=== PATIENT | female | born 1935 | race Caucasian/White ===

== ENCOUNTER 2019-12-05 11:21 | Outpatient (CLI) | payer MEDICARE, SELFPAY ==
[2019-12-05 12:27] LABS: Hematocrit 38.6 % (37.0-47.0); Hemoglobin 12.6 g/dL (12.0-15.0); Mean Corpuscular HGB Conc 32.6 g/dl (32-36); Mean Corpuscular Hemoglobin 31.1 pg (26-34); Mean Corpuscular Volume 95.3 fl (80-100); Mean Platelet Volume 10.3 fl (7.4-10.4); Platelet Count Result 205 k/mm3 (150-375); Red Blood Count 4.05 M/mm3 (4.2-5.4); Red Cell Distribution Width 13.2 % (11.5-14.5); White Blood Count 6.8 K/mm3 (4.5-10.0)
[2019-12-05 12:38] LABS: Alanine Aminotransferase 34 U/L (4-35); Albumin Level 4.3 g/dL (3.5-5.1); Alkaline Phosphatase 79 U/L (38-126); Anion Gap 6 mmol/L (8-16); Aspartate Amino Transferase 35 U/L (14-36); Blood Urea Nitrogen 13 mg/dL (7-17); Carbon Dioxide 27 mmol/L (22-30); Chloride 106 mmol/L (98-107); Cholesterol 155 mg/dL (0-200); Estimated Glomerular Filt Rate > 60; Glucose 119 mg/dL (65-105); HDL Direct 46 mg/dL; Potassium 4.7 mmol/L (3.4-5.0); Sodium 139 mmol/L (137-145); Triglycerides 125 mg/dL (<150)
[2019-12-05 12:49] LABS: LDL Cholesterol Direct 74 mg/dL
[2019-12-05 13:09] LABS: Thyroid Stimulating Hormone < 0.015 uIU/mL (0.465-4.680)
== END 2019-12-05 11:22 | disposition home or self-care (01) ==
LOC: ANHLAB 11:25
PROVIDERS: PCP Family Medicine; Visit Provider Family Medicine
DX: I48.91 Unspecified atrial fibrillation (principal); E03.9 Hypothyroidism, unspecified; E78.2 Mixed hyperlipidemia; I10 Essential (primary) hypertension; R94.6 Abnormal results of thyroid function studies
CPT/HCPCS: 36415; 80053; 80061; 84443; 85027

== ENCOUNTER 2022-04-22 09:38 | Emergency (ER) | payer MEDICARE, SELFPAY ==
--- NOTE | ~2022-04-22 | XR_ITS ---
XR wrist RT min 3V DATE: 04/22/2022 10:03 INDICATION: Fall. Right wrist injury, pain TECHNIQUE: 4 views COMPARISON: None FINDINGS: Diffuse osteopenia. Polyarticular osteoarthritis, including triscaphe, first carpometacarpal, first metacarpophalangeal a nd interphalangeal joints, second and third metacarpophalangeal and additional included fourth proxim al interphalangeal joint and fifth proximal and distal interphalangeal joints. Subtle nondisplaced distal radial fracture is not excluded. CT right wrist examination is recommended . IMPRESSION: Cannot exclude subtle nondisplaced distal radial fracture; CT right wrist examination wou ld be more definitive for confirmation or exclusion of distal radial fracture Osteopenia Polyarticular osteoarthritis Reviewed, dictated and finalized at location A. [employer] IMPRESSION: Cannot exclude subtle nondisplaced distal radial fracture; CT right wrist examination would be more definitive for confirmation or exclusion of di stal radial fracture Osteopenia Polyarticular osteoarthritis
[2022-04-22 09:42] VITALS: BP 164/84; PULSE 80; RESP 20; TEMP 37.2; O2SAT 100
--- NOTE | 2022-04-22 09:49 | ED.UPPEXIN ---
HPI - Extremity Injury (Upper) General Chief Complaint: Extremity Injury, Upper Stated Complaint: right wrist injury Time Seen by Provider: 04/22/22 09:49 History of Present Illness HPI narrative: PATIENT WAS REACHING DOWN TO ATTEMPT TO PUT GUTTER BACK IN PLACE YESTERDAY AND LOST BALANCE CATCHING HERSELF WITH HER RIGHT WRIST. PATIENT PRESENTS TODAY WITH RIGHT WRIST PAIN. Related Data Home Medications Medication Instructions Recorded Confirmed acetaminophen 500 mg capsule 500 mg PO Q4H PRN Pain 01/28/19 04/22/22 aspirin 81 mg tablet,delayed 81 mg PO DAILY 01/28/19 04/22/22 release (Adult Low Dose Aspirin) multivitamin,[id number] 1 tablet PO DAILY 01/28/19 04/22/22 (Complete Multivitamin tablet) rivaroxaban 20 mg tablet (Xarelto) 20 mg PO DAILY 01/28/19 04/22/22 Allergies Allergy/AdvReac Type Severity Reaction Status Date / Time pentazocine Allergy Unknown Unknown Verified 04/22/22 09:42 red dye Allergy Unknown Unknown Verified 04/22/22 09:42 Contrast Media Allergy Unknown Unknown Uncoded 12/21/20 11:21 Review of Systems Review of Systems: CONSTITUTIONAL: DENIES FEVER, CHILLS, OR SWEATS. EYES: DENIES VISUAL CHANGES, REDNESS, OR DISCHARGE. ENT: DENIES RHINORRHEA, CONGESTION, SORE THROAT, OR OTALGIA. CARDIOVASCULAR: DENIES CHEST PAIN, PALPITATIONS, OR EDEMA. RESPIRATORY: DENIES COUGH OR DYSPNEA. GASTROINTESTINAL: DENIES ABDOMINAL PAIN, NAUSEA, VOMITING, OR DIARRHEA. GENITOURINARY: DENIES DYSURIA OR HEMATURIA. SKIN: DENIES RASH OR ITCHING. MUSCULOSKELETAL: DENIES BACK PAIN, JOINT PAIN, OR MYALGIA. NEUROLOGIC: DENIES HEADACHE, NUMBNESS, OR WEAKNESS. PSYCHIATRIC: DENIES ANXIETY OR DEPRESSION. [facility] Past Medical History Medical History Atrial fibrillation and flutter Chronic knee pain Chronic shoulder pain Congestive heart failure Hyperlipidemia Hypertension Hypothyroidism determined by thyroid function test Surgical History Surgical History History of cholecystectomy History of heart artery stent Family History Family History Mother Family history of malignant neoplasm Diabetes mellitus Father Family history of heart disease in male family member before age 55 Diabetes mellitus Social History Social History Smoking status: Never smoker Second hand tobacco smoke exposure: No Smoking end date: 03/12/99 Alcohol intake: current Substance use: never Substance use type: does not use Living arrangements: alone Occupation/Education: retired Gender identity (if verbalized by the patient): Female Comments AT TIME OF SIGNATURE, AGREE WITH NURSING PAST MEDICAL, SURGICAL, SOCIAL AND FAMILY HISTORY. THERE IS NO RELEVANT FAMILY HISTORY PERTINENT TO THE PRESENTING COMPLAINT Exam Narrative: GENERAL: WELL-APPEARING, WELL-NOURISHED, AND IN NO ACUTE DISTRESS. HEAD: NORMOCEPHALIC, ATRAUMATIC. EYES: PERRLA AND EOMI. ENT: NARES CLEAR, NO RHINORRHEA OR EPISTAXIS. MUCOUS MEMBRANES MOIST. NECK: SUPPLE. CHEST: CLEAR TO AUSCULTATION. NO RESPIRATORY DISTRESS. HEART: REGULAR RATE AND RHYTHM. NO MURMUR HEARD. NORMAL PERIPHERAL PULSES. ABDOMEN: SOFT, NONTENDER, NONDISTENDED, NORMAL ACTIVE BOWEL SOUNDS. EXTREMITIES: NORMAL RANGE OF MOTION. NO EDEMA. RIGHT WRIST PAIN HAND EXAM - Skin intact, no laceration, SLIGHT swelling, no erythema, normal digit cascade with flexion of fingers, median nerve, ulnar nerve, radial nerve is intact. Normal sensation of each side of each finger, can perform `ok? sign, `cross over finger test of index and middle fingers? and `thumbs up? sign, normal thumb opposition, no scissoring. good capillary refill and radial pulse. normal flexion and extension of fingers and wrist. normal supination at wrist. Normal forearm and elbow exam. PAIN TO DORSAL SIDE OF WRIST.
== END 2022-04-22 11:12 | disposition home or self-care (01) ==
PROVIDERS: Emergency Provider Nurse Practitioner Family; PCP Family Medicine
DX: S62.101A Fracture of unspecified carpal bone, right wrist, initial encounter for closed fracture (principal); W19.XXXA Unspecified fall, initial encounter; I48.91 Unspecified atrial fibrillation; I11.0 Hypertensive heart disease with heart failure; I50.9 Heart failure, unspecified; E78.5 Hyperlipidemia, unspecified; I10 Essential (primary) hypertension; E03.9 Hypothyroidism, unspecified; I25.10 Atherosclerotic heart disease of native coronary artery without angina pectoris; Z95.5 Presence of coronary angioplasty implant and graft
CPT/HCPCS: 29125; 73110; 99214; A4565; G0463

== ENCOUNTER 2022-09-10 10:29 | Inpatient (IN) | payer MEDICARE, SELFPAY ==
[2022-09-10] VITALS (9 sets, daily range): BP systolic 119–168; BP diastolic 44–80; PULSE 57–92; RESP 16–28; TEMP 36.3–36.6; O2SAT 95–100; BMI 23.8
--- NOTE | ~2022-09-10 | CT_ITS ---
EXAMINATION: CT cervical spine wo con DATE: 09/10/2022 13:03 INDICATION: Neck pain TECHNIQUE: Computed tomography (CT) of the cervical spine was performed without intravenous contrast. The dose-length product (DLP) was 152.58 mGy-cm. Automated exposure control and iterative reconstruc tion technique were employed. COMPARISON: None FINDINGS: There is 1 mm of retrolisthesis of C4 on C5 and C5 on C6. The vertebral body heights are no rmal. There is severe loss of intervertebral disc space height from C4-5 through C6-7. The odontoid p rocess is intact. Small degenerative osteophytes project from the anterior endplates of multiple vert ebral bodies. The prevertebral soft tissues are normal. There is no fracture. There is multilevel mod erate to severe facet and uncovertebral joint osteoarthritis. IMPRESSION: 1. Severe cervical spondylosis without acute findings. Reviewed, dictated and finalized at location A.
--- NOTE | ~2022-09-10 | CT_ITS ---
EXAMINATION: CT brain wo con INDICATION: Headache COMPARISON: 03/18/2018 TECHNIQUE: Standard unenhanced head CT. The dose-length product (DLP) was 605.33 mGy-cm. The mA was a djusted according to patient size. Iterative reconstruction technique was employed. FINDINGS: There is no acute intraparenchymal hemorrhage. No evidence of mass lesion. No evidence of a cute infarction. There is mild periventricular and subcortical hypodensity probably related to small vessel ischemic disease. There is mild prominence of the sulci and ventricles related to cerebral atr ophy. Intracranial calcified cerebral atherosclerosis is noted. There are no extra-axial collections. There is no mass effect or midline shift. Changes in the globes are likely from ocular lens surgery. There is mild mucosal thickening of the paranasal sinuses. IMPRESSION: 1. No acute intracranial abnormality. 2. Age related findings. Reviewed, dictated and finalized at location A.
--- NOTE | ~2022-09-10 | XR_ITS ---
EXAMINATION: XR chest 2V DATE: 09/10/2022 12:52 INDICATION: Chest pain after fall TECHNIQUE: Frontal and lateral views of the chest are obtained COMPARISON: 03/18/2018 FINDINGS: The lungs are free of acute opacities. There are small pleural effusions. No pneumothorax i s identified. There is advanced osteoarthritis of the left glenohumeral joint. The cardiomediastinal silhouette is normal. There is moderate thoracic spondylosis. A coronary artery stent is noted. IMPRESSION: 1. Small pleural effusions. Reviewed, dictated and finalized at location A. IMPRESSION: 1. Small pleural effusions.
--- NOTE | 2022-09-10 11:08 | ECG_ITS ---
Measurements Intervals [place] Rate: 51 P: [place]: 0 QRS: 4 QRSD: 120 T: 3 QT: 472 QTc: 439 Interpretive Statements JUNCTIONAL RHYTHM RIGHT BUNDLE BRANCH BLOCK BASELINE ARTIFACT- I, II, III, AVR, AVL, AVF, V2 ABNORMAL ECG NO PREVIOUS ECG AVAILABLE FOR COMPARISON Electronically Signed On 09-10-2022 13:13:52 CDT by Luis Bowles D.O.
[2022-09-10 11:29] LABS: Basophils Percent Auto 0.2 % (0.2-1.2); Hematocrit 39.3 % (37.0-47.0); Hemoglobin 13.2 g/dL (12.0-15.0); Immature Granulocyte Absolute 0.04 K/mm3 (0.00-0.031); Immature Granulocyte Percent A 0.3 % (0-0.5); Lymphocytes Absolute Auto 0.47 K/mm3 (0.9-3.2); Lymphocytes Percent Auto 3.4 % (18.3-44.2); Mean Corpuscular HGB Conc 33.6 g/dl (32-36); Mean Corpuscular Hemoglobin 31.3 pg (26-34); Mean Corpuscular Volume 93.1 fl (80-100); Mean Platelet Volume 10.5 fl (7.4-10.4); Monocytes Absolute Auto 0.7 K/mm3 (0.1-0.6); Monocytes Percent Auto 4.9 % (2.6-8.5); Neutrophils Absolute Auto 12.6 K/mm3 (1.3-6.7); Neutrophils Percent Auto 91.2 % (45.5-73.1); Platelet Count Result 216 k/mm3 (150-375); Red Blood Count 4.22 M/mm3 (4.2-5.4); Red Cell Distribution Width 12.4 % (11.5-14.5); White Blood Count 13.8 K/mm3 (4.5-10.0)
[2022-09-10 11:42] LABS: Alanine Aminotransferase 39 U/L (6-35); Albumin Level 4.1 g/dL (3.5-5.1); Alkaline Phosphatase 71 U/L (38-126); Anion Gap 10 mmol/L (8-16); Aspartate Amino Transferase 59 U/L (14-36); Bilirubin,Total 1.4 mg/dL (0.2-1.3); Blood Urea Nitrogen 14 mg/dL (7-17); Calcium 9.2 mg/dL (8.4-10.2); Carbon Dioxide 26 mmol/L (22-30); Chloride 107 mmol/L (98-107); Estimated CRCL calculation 40 ml/min; Estimated Glomerular Filt Rate > 60; Glucose 139 mg/dL (65-110); Lipase 136 U/L (23-300); Potassium 3.4 mmol/L (3.4-5.0); Sodium 143 mmol/L (137-145)
[2022-09-10 11:54] LABS: INR 1.8; Partial Thromboplastin Time 31.7 SECONDS (22.3-36.8); Prothrombin Time 22.3 Seconds (11.1-14.7)
--- NOTE | 2022-09-10 12:26 | ED.CHESTPAIN ---
HPI - Chest Pain General Chief Complaint: Chest Pain Stated Complaint: heart attack Time Seen by Provider: 09/10/22 12:00 History of Present Illness HPI narrative: Patient is an 87-year-old female with a history of hypertension, CHF, A-fib on Xarelto, hyperlipidemia, hypothyroidism, CAD presenting with chest pain. Patient states that for the last several days she has had left-sided chest pain that goes into her left arm. States that she has been feeling a bit short of breath. Patient states that she lost her balance and fell in the middle of the night last night. She was unable to get up so she laid on the floor until her son came in the morning. She denies headache, neck or back pain, numbness or weakness, abdominal pain, nausea or vomiting, diarrhea, dysuria, leg swelling. Related Data Home Medications Medication Instructions Recorded Confirmed acetaminophen 500 mg capsule 500 mg PO Q4H PRN Pain 01/28/19 09/10/22 aspirin 81 mg tablet,delayed 81 mg PO DAILY 01/28/19 09/10/22 release (Adult Low Dose Aspirin) multivitamin,[id number]-hxzhszhx 1 tablet PO DAILY 01/28/19 09/10/22 (Complete Multivitamin tablet) rivaroxaban 20 mg tablet (Xarelto) 20 mg PO DAILY 01/28/19 09/10/22 furosemide 20 mg tablet 20 mg PO DAILY 09/10/22 09/10/22 hydralazine 25 mg tablet 25 mg PO BID 09/10/22 09/10/22 Allergies Allergy/AdvReac Type Severity Reaction Status Date / Time pentazocine Allergy Unknown Unknown Verified 04/27/22 09:16 red dye Allergy Unknown Unknown Verified 04/27/22 09:16 Contrast Media Allergy Unknown Unknown Uncoded 04/27/22 09:16 Review of Systems Review of Systems: All systems reviewed & are unremarkable except as noted in HPI and below PMFSH Past Medical History Medical History (Updated 09/11/22 @ 21:23 by China Chen MD) Atrial fibrillation and flutter Chronic anticoagulation Chronic knee pain Chronic shoulder pain Congestive heart failure Coronary artery disease Diverticulitis Hyperlipidemia Hypertension Hypothyroidism Osteoarthritis Osteoporosis Type 2 diabetes mellitus Surgical History Surgical History (Updated 09/10/22 @ 17:03 by Meghana Joyce PA-C) History of arthroscopy of right knee History of basal cell carcinoma excision History of cataract extraction History of cholecystectomy History of heart artery stent History of tonsillectomy Family History Family History (Updated 09/10/22 @ 17:05 by Meghana Joyce PA-C) Mother Diabetes mellitus Leukemia Father Family history of heart disease in male family member before age 55 Diabetes mellitus Heart disease Social History Social History (Updated 09/10/22 @ 17:04 by Meghana Joyce PA-C) Social History: Surrogate medical decision maker: Code status: Full code. Smoking packs per day: 0.5 Smoking cigarettes per day: 10.0 Years smoked: 10 Smoking pack-years: 5.00 Smoking status: Former smoker Second hand tobacco smoke exposure: No Smoking end date: 03/12/99 Alcohol intake: never Substance use: never Substance use type: does not use Lack of Transportation: No Lack of Food: Never True Current Housing: I Have Housing Concerned About Future Housing: No Difficulty Paying Gas/Electric Bills: No Difficulty Paying for Meds: No Currently Unemployed: No Education: Decline to Answer Difficulty w/ Childcare or Family Care: No Living arrangements: alone Additional living arrangements comments: . Four children, 2 have passed. Occupation/Education: retired Additional occupation/education comments: Retired from [employer]. Spiritual care concerns: No Exam Narrative: GENERAL: Frail-appearing elderly female lying in bed in no acute distress HEAD: Normocephalic, atraumatic. EYES: PERRLA and EOMI. ENT: Nares clear, no rhinorrhea or epistaxis. Mucous membranes moist. NECK: Supple. No midline tenderness CHEST: Clear to auscultation. No respiratory distress. HEART: Regula
[2022-09-10] MEDS: SODIUM CHLORIDE 0.9% IV 1,000 ML 999 ML IV CONT (12:35)
[2022-09-10] MEDS: ASPIRIN 81 MG CHEWABLE TABLET 324 MG PO (12:36)
[2022-09-10 12:45] LABS: Creatine Kinase 397 U/L (30-135); Magnesium 1.7 mg/dL (1.6-2.3)
[2022-09-10 12:47] LABS: Lactic Acid Reflex 3.3 mmol/L (0.7-2.0)
[2022-09-10 12:57] LABS: NT Pro B Type Natriuretic Pept 2670 pg/mL (19.9-100)
[2022-09-10] MEDS: MORPHINE SULFATE (*CRX) 2 MG/ML INJ IV PUSH ×2 (13:48→17:35)
[2022-09-10 15:36] LABS: Reflex Lactic Acid Yes or No Add Lactic
--- NOTE | 2022-09-10 15:44 | ADMGEN ---
This patient, Bindu Espinosa, was admitted to IMU Room 231-01 at 1542. Patient/family oriented to hospital policies and general routines including ID bracelet, bed and alarms, visiting hours, pain management, procedures, bathroom and other care routines, personal items, smoking policy, room service/diet, and visiting hours. Information on how to activate the Rapid Response Team has been discussed. Patient/Family are encouraged to report perceived risks to care and to ask questions if they do not understand what they are told or what they should do.
--- NOTE | 2022-09-10 16:28 | ECG_ITS ---
Measurements Intervals [place] Rate: 78 P: 60 [place]: 208 QRS: -2 QRSD: 135 T: 22 QT: 423 QTc: 483 Interpretive Statements SINUS RHYTHM FREQUENT ATRIAL PREMATURE COMPLEXES RIGHT BUNDLE BRANCH BLOCK BASELINE WANDER- II, III, AVR, AVL, AVF, V3-V6 ABNORMAL ECG COMPARED TO ECG 09/10/2022 11:13:00 SINUS RHYTHM NOW PRESENT Electronically Signed On 09-11-2022 6:49:44 CDT by Luis Bowles D.O.
[2022-09-10] MEDS: NITROGLYCERIN SL 0.4 MG TABLET SUBLINGUAL (16:40)
--- NOTE | 2022-09-10 17:00 | PM.IMHP ---
H&P: HPI History of Present Illness Date/Time: 09/10/22 17:00 Chief Complaint: Chest pain. Narrative: This is an 87-year-old female with history of coronary artery disease, atrial fibrillation flutter on chronic anticoagulation, congestive heart failure, hypertension, hyperlipidemia, and hypothyroidism who presented to the emergency department from home for evaluation of chest pain. The patient provides the following history. She reports intermittent left-sided chest discomfort radiating to the left arm associated with mild shortness of breath for the past couple of days. She sees no pattern as to when this occurs and she has not noticed any significant aggravating or alleviating factors. Sometime overnight she got up to use restroom, lost her balance, and fell to the floor. She does not believe that she hit her head and does not think that there was any loss of consciousness in the fall. She was unable to get herself up and she lay on the floor until her son found her this morning. Vital signs were stable on arrival to the ED. CT of the head and neck did not show any acute findings. Labs were significant for WBC count of 13.8, CK 397, total bili I 0.4, AST 59, ALT 39, troponin with a peak of 4.670. EKG showed a junctional rhythm with right bundle-branch block and no acute ST segment depressions or elevations. She was treated with nitroglycerin and morphine with improvement in her pain and she is without discomfort at the time my evaluation. Review of Systems Review of Systems: Twelve systems were reviewed. No headache. No vertigo. No focal weakness or paresthesias. She denies recent cold and flu symptoms. No nausea or vomiting. She denies sweats. Perhaps some mild shortness of breath with her chest pain but nothing significant. Except as documented, all other systems were reviewed and are negative. [facility] Past Medical History Medical History (Updated 09/10/22 @ 17:06 by Meghana Joyce PA-C) Atrial fibrillation and flutter Chronic anticoagulation Chronic knee pain Chronic shoulder pain Congestive heart failure Coronary artery disease Diverticulitis Hyperlipidemia Hypertension Hypothyroidism Osteoarthritis Osteoporosis Type 2 diabetes mellitus Surgical History Surgical History (Updated 09/10/22 @ 17:03 by Meghana Joyce PA-C) History of arthroscopy of right knee History of basal cell carcinoma excision History of cataract extraction History of cholecystectomy History of heart artery stent History of tonsillectomy Family History Family History (Updated 09/10/22 @ 17:05 by Meghana Joyce PA-C) Mother Diabetes mellitus Leukemia Father Family history of heart disease in male family member before age 55 Diabetes mellitus Heart disease Social History Social History (Updated 09/10/22 @ 17:04 by Meghana Joyce PA-C) Social History: Surrogate medical decision maker: Code status: Full code. Smoking packs per day: 0.5 Smoking cigarettes per day: 10.0 Years smoked: 10 Smoking pack-years: 5.00 Smoking status: Former smoker Second hand tobacco smoke exposure: No Smoking end date: 03/12/99 Alcohol intake: never Substance use: never Substance use type: does not use Lack of Transportation: No Lack of Food: Never True Current Housing: I Have Housing Concerned About Future Housing: No Difficulty Paying Gas/Electric Bills: No Difficulty Paying for Meds: No Currently Unemployed: No Education: Decline to Answer Difficulty w/ Childcare or Family Care: No Living arrangements: alone Additional living arrangements comments: . Four children, 2 have passed. Occupation/Education: retired Additional occupation/education comments: Retired from [employer]. Spiritual care concerns: No Meds Home Medications and Allergies Home Medications Medication Instructions Recorded Confirmed Type acetaminophen 500 mg capsule 500 mg PO Q4H PRN Pain 01/28/19
[2022-09-10 17:34] LABS: Hemoglobin A1C 5.1 % (<5.7)
[2022-09-10 18:02] LABS: Creatine Kinase 483 U/L (30-135)
[2022-09-10 18:05] LABS: Lactic Acid 1.2 mmol/L (0.7-2.0)
--- NOTE | 2022-09-10 18:26 | PC.NURSE ---
Holding 1800 hydralazine dose due to nitro and morphine given.
[2022-09-10] MEDS: NITROGLYCERIN OINTMENT 1 INCH DOSE TRANSDERM (19:18)
[2022-09-10] MEDS: METOPROLOL TARTRATE 25 MG TABLET PO (19:18)
[2022-09-10 20:03] LABS: Glucose Point of Care 120 mg/dl (65-105)
[2022-09-11] VITALS (14 sets, daily range): BP systolic 118–153; BP diastolic 54–89; PULSE 60–82; RESP 17–20; TEMP 36.2–36.8; O2SAT 97–99
[2022-09-11] MEDS: NITROGLYCERIN OINTMENT 1 INCH DOSE TRANSDERM ×4 (02:13→17:27)
[2022-09-11 05:01] LABS: Hematocrit 35.4 % (37.0-47.0); Hemoglobin 11.5 g/dL (12.0-15.0); Mean Corpuscular HGB Conc 32.5 g/dl (32-36); Mean Corpuscular Hemoglobin 30.6 pg (26-34); Mean Corpuscular Volume 94.1 fl (80-100); Mean Platelet Volume 10.5 fl (7.4-10.4); Platelet Count Result 171 k/mm3 (150-375); Red Blood Count 3.76 M/mm3 (4.2-5.4); Red Cell Distribution Width 12.4 % (11.5-14.5); White Blood Count 8.5 K/mm3 (4.5-10.0)
[2022-09-11 05:12] LABS: Alanine Aminotransferase 38 U/L (6-35); Albumin Level 3.4 g/dL (3.5-5.1); Alkaline Phosphatase 57 U/L (38-126); Anion Gap 7 mmol/L (8-16); Aspartate Amino Transferase 71 U/L (14-36); Bilirubin,Total 1.8 mg/dL (0.2-1.3); Blood Urea Nitrogen 11 mg/dL (7-17); Calcium 8.4 mg/dL (8.4-10.2); Carbon Dioxide 24 mmol/L (22-30); Chloride 110 mmol/L (98-107); Creatine Kinase 502 U/L (30-135); Estimated CRCL calculation 40 ml/min; Estimated Glomerular Filt Rate > 60; Glucose 120 mg/dL (65-110); Magnesium 1.9 mg/dL (1.6-2.3); Potassium 3.5 mmol/L (3.4-5.0); Sodium 141 mmol/L (137-145)
[2022-09-11 05:53] LABS: Thyroid Stimulating Hormone Reflex < 0.015 uIU/mL (0.465-4.68)
[2022-09-11 07:17] LABS: Free T4 Free Thyroxine Reflex 1.79 ng/dL (0.78-2.19)
[2022-09-11 07:58] LABS: Total Triiodothyronine (T3) 0.88 NG/ML (0.97-1.69)
[2022-09-11 08:00] LABS: Glucose Point of Care 128 mg/dl (65-105)
[2022-09-11] MEDS: FUROSEMIDE 20 MG TABLET PO (09:17)
[2022-09-11] MEDS: ASPIRIN 81 MG ENTERIC TABLET PO (09:17)
[2022-09-11] MEDS: hydrALAZINE HCL 25 MG TABLET PO ×2 (09:24→17:25)
[2022-09-11] MEDS: METOPROLOL TARTRATE 25 MG TABLET PO ×2 (09:24→17:25)
[2022-09-11] MEDS: ATORVASTATIN 40 MG TABLET PO (09:24)
[2022-09-11] MEDS: lisinopriL 20 MG TABLET PO (09:24)
[2022-09-11] MEDS: THERAPEUTIC MULTIVITAMINS/MINERALS TAB (*BKC) 1 TABLET PO (09:28)
[2022-09-11 11:48] LABS: Glucose Point of Care 117 mg/dl (65-105)
--- NOTE | 2022-09-11 12:29 | PM.IMPN ---
Progress Note: A&P Assessment and Plan (1) Non-ST elevated myocardial infarction: Code(s): I21.4 - Non-ST elevation (NSTEMI) myocardial infarction Status: Acute (2) Fall from ground level: Code(s): W18.30XA - Fall on same level, unspecified, initial encounter Status: Acute (3) Coronary artery disease: Code(s): I25.10 - Atherosclerotic heart disease of [place] coronary artery without angina pectoris Status: Acute (4) Hypertension: Qualifiers: Hypertension type: essential hypertension Qualified Code(s): I10 - Essential (primary) hypertension Code(s): I10 - Essential (primary) hypertension Status: Acute (5) Hyperlipidemia: Qualifiers: Hyperlipidemia type: mixed hyperlipidemia Qualified Code(s): E78.2 - Mixed hyperlipidemia Code(s): E78.5 - Hyperlipidemia, unspecified Status: Acute (6) Chronic anticoagulation: Code(s): 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 Labs, imaging, EKG, and all reports were personally reviewed. EKG does not show any acute ST segment depressions or elevations however troponin is elevated and is now a little bit above 4.0. Cardiology has been consulted and for now they recommend holding her Xarelto as she may need to be taken to the [facility]. Troponins will be trended to peak. At the time my evaluation she is without chest pain. Regarding her fall, she reports to me that she lost her balance and does not think there was any loss of consciousness or head trauma. She is a bit confused as to what occurred however. Continue to monitor on telemetry to rule out cardiac dysrhythmia. Her CK is a bit elevated but not significantly so and will be monitored. LFTs are also mildly elevated and have been in the past. Abdominal exam is benign and LFTs will be trended. Initiate sliding scale insulin, Accu-Cheks, and hypoglycemic protocol. Check hemoglobin A1c. Continue levothyroxine and check TSH. The rest of her home medications will be reviewed and resumed as appropriate. 09/11/2022:This is an 87-year-old female with history of coronary artery disease, atrial fibrillation flutter on chronic anticoagulation, congestive heart failure, hypertension, hyperlipidemia, and hypothyroidism presented with chest pain. Intermittent left-sided chest discomfort radiating to the left arm associated with mild shortness of breath for the past couple of days. Sometime overnight she got up to use restroom, lost her balance, and fell to the floor. No head injury. she was unable to get herself up and she lay on the floor until her son found her this morning. Vital stable. CT of the head and neck did not show any acute findings. Labs were significant for WBC count of 13.8, CK 397, total bili I 0.4, AST 59, ALT 39, troponin with a peak of 4.670. EKG showed a junctional rhythm with right bundle-branch block and no acute ST segment depressions or elevations. She was treated with nitroglycerin and morphine with improvement in her pain. Leukocytosis since then resolved. Troponin level 1.94-4.0 5-4.67. BNP 1670 TSH less than 0.015. Free T4 is normal INR 1.8 on rivaroxaban likely related to that. Continues to have mildly elevated LFTs and CK level. Cervical CT was severe cervical spondylosis without acute findings. Chest x-ray with small pleural effusions. On aspirin and atorvastatin. Xarelto on hold. Hold levothyroxine cardiology has been consulted and will be taken for cardiac catheterization. Remains chest pain-free Subjective Date/time seen: 09/11/22 12:29 Interval history: This is an 87-year-old
--- NOTE | 2022-09-11 15:00 | PCPTNOTE ---
Pt to have cardiac catheterization - Per hospitalist Dr. Zhao, Hold PT until medically stable post cardiac catheterization. will make RN aware. Will follow.
--- NOTE | 2022-09-11 16:08 | PM.CNCAR ---
Assessment and Plan Assessment and plan (1) Non-ST elevated myocardial infarction: Code(s): I21.4 - Non-ST elevation (NSTEMI) myocardial infarction Status: Acute (2) Atrial fibrillation and flutter: Code(s): I48.91 - Unspecified atrial fibrillation; I48.92 - Unspecified atrial flutter Status: Acute (3) History of heart artery stent: Code(s): Z95.5 - Presence of coronary angioplasty implant and graft Status: Acute Plan This is an 87-year-old lady with a history of coronary disease with previous interventional revascularization of her LAD in [place] back in 2006 and 2007. She has been having intermittent episodes of left precordial pain for the last 2 or 3 weeks from what she tells me today. This is occurring in a nonexertional somewhat unpredictable fashion. She then was found on the floor for residence by her son yesterday and brought in for evaluation. Troponin levels are moderately elevated indicating evidence of recent non ST-elevation [place]. long discussion with the patient and her son about this in the room. As long as they still wish to have an aggressive approach to treating her coronary artery disease we should recommend follow-up angiography. We will plan for doing this on Tuesday September 13, 2022 after she has been off of Xarelto for a sufficient amount of time. Jonas Prater MD [facility] History of Present Illness History of Present Illness Consult date/time: 09/11/22 16:08 Reason For Visit: Chest Pain Narrative: This is a 87-year-old lady I am seeing at the request of the hospitalist group because of evidence of acute coronary syndrome/non ST elevation [place]. The patient is known to me from office follow-up she has a history of coronary artery disease and atrial fibrillation. She came into the hospital yesterday at home after having an apparent fall in her residence and was found on the floor in her bedroom by her son who called an ambulance and had her brought into the hospital for evaluation. The patient says she can not remember falling or tripping on anything she simply remembers being on the floor at home and being unable to get up. She laid on the floor from Sunday night into Sunday because she could get up and her son who finally came in to check on her found her and that situation. She says that she has been having episodes of chest pain off and on for about 2 weeks or so she describes a dull aching left precordial pain that seems to come and go in an unpredictable fashion she does not describe this as exertional in nature necessarily it is not associated with shortness of breath nausea vomiting or diaphoresis. She does not have any radiation of this pain to any other location. She states that this was not the principal reason for having her brought to the hospital. In any event she was evaluated in the emergency room and admitted to the hospital. She has a history of coronary artery disease and chronic atrial fibrillation. She previously resided in [place] and underwent PCI of her LAD in in [place] back in 2006 and again in 2007 because of restenoses. She has not had any catheterization procedures done by me since she has been my patient in this area. She developed atrial fibrillation in 2018 and has been on rate control and anticoagulation treatment since then. She also has a history of hypothyroidism treated with thyroid replacement therapy. When I last saw the patient in the office in May of this year she had no cardiovascular complaints she had lost a fair amount of weight in the last year despite a good appetite. Review of Systems Constitutional: Constitutional: Reports no additional constitutional complaints Eyes: Eyes: Reports no additional eye complaints ENT: Reports system reviewed and no additional complaints, except as documented Cardiovascular: Cardiovascular: Reports as per HPI Respiratory: Respiratory: Reports no additional respiratory complaints Gastrointe
[2022-09-11 16:50] LABS: Glucose Point of Care 99 mg/dl (65-105)
[2022-09-11 20:02] LABS: Glucose Point of Care 107 mg/dl (65-105)
[2022-09-12] VITALS (16 sets, daily range): BP systolic 111–145; BP diastolic 53–78; PULSE 53–75; RESP 16–22; TEMP 36.4–37.5; O2SAT 95–100
[2022-09-12] MEDS: NITROGLYCERIN OINTMENT 1 INCH DOSE TRANSDERM ×5 (00:21→23:03)
[2022-09-12] MEDS: ACETAMINOPHEN 500 MG TABLET PO ×2 (00:29→19:34)
[2022-09-12 05:12] LABS: Basophils Absolute Auto 0.1 K/mm3 (0.0-0.1); Basophils Percent Auto 0.7 % (0.2-1.2); Eosinophils Percent Auto 0.4 % (0-4.4); Hemoglobin 10.9 g/dL (12.0-15.0); Immature Granulocyte Absolute 0.01 K/mm3 (0.00-0.031); Immature Granulocyte Percent A 0.1 % (0-0.5); Lymphocytes Absolute Auto 1.37 K/mm3 (0.9-3.2); Lymphocytes Percent Auto 18.5 % (18.3-44.2); Mean Corpuscular Hemoglobin 30.9 pg (26-34); Mean Corpuscular Volume 93.5 fl (80-100); Mean Platelet Volume 10.8 fl (7.4-10.4); Monocytes Absolute Auto 0.7 K/mm3 (0.1-0.6); Neutrophils Absolute Auto 5.3 K/mm3 (1.3-6.7); Neutrophils Percent Auto 71.3 % (45.5-73.1); Platelet Count Result 146 k/mm3 (150-375); Red Blood Count 3.53 M/mm3 (4.2-5.4); Red Cell Distribution Width 12.2 % (11.5-14.5); White Blood Count 7.4 K/mm3 (4.5-10.0)
[2022-09-12 05:45] LABS: Alanine Aminotransferase 37 U/L (6-35); Albumin Level 3.1 g/dL (3.5-5.1); Alkaline Phosphatase 54 U/L (38-126); Anion Gap 5 mmol/L (8-16); Aspartate Amino Transferase 66 U/L (14-36); Bilirubin,Total 2.1 mg/dL (0.2-1.3); Blood Urea Nitrogen 13 mg/dL (7-17); Carbon Dioxide 24 mmol/L (22-30); Chloride 108 mmol/L (98-107); Estimated CRCL calculation 40 ml/min; Estimated Glomerular Filt Rate > 60; Glucose 86 mg/dL (65-110); Magnesium 1.9 mg/dL (1.6-2.3); Potassium 3.1 mmol/L (3.4-5.0); Sodium 137 mmol/L (137-145)
[2022-09-12] MEDS: LEVOTHYROXINE SODIUM 100 MCG TABLET PO (06:23)
[2022-09-12 07:48] LABS: Glucose Point of Care 75 mg/dl (65-105)
[2022-09-12] MEDS: hydrALAZINE HCL 25 MG TABLET PO ×2 (09:25→17:46)
[2022-09-12] MEDS: ASPIRIN 81 MG ENTERIC TABLET PO (09:25)
[2022-09-12] MEDS: lisinopriL 20 MG TABLET PO (09:25)
[2022-09-12] MEDS: THERAPEUTIC MULTIVITAMINS/MINERALS TAB (*BKC) 1 TABLET PO (09:25)
[2022-09-12] MEDS: METOPROLOL TARTRATE 25 MG TABLET PO ×2 (09:25→17:46)
[2022-09-12] MEDS: ATORVASTATIN 40 MG TABLET PO (09:25)
[2022-09-12] MEDS: POTASSIUM CHLORIDE 20 MEQ ER TABLET 40 MEQ PO (09:25)
[2022-09-12] MEDS: FUROSEMIDE 20 MG TABLET PO (09:25)
--- NOTE | 2022-09-12 10:06 | PCOTNOTE ---
Spoke with nurse, patient is having cardiac cath on 09/13/22. Therapy to hold until after procedure.
--- NOTE | 2022-09-12 10:47 | PM.PNCARD ---
Progress Note: A&P Assessment and Plan (1) Non-ST elevated myocardial infarction: Code(s): I21.4 - Non-ST elevation (NSTEMI) myocardial infarction Status: Acute Assessment and Plan: Continue nitroglycerin, aspirin, statin, metoprolol. Holding anticoagulation she had been on Xarelto for AFib. Plan is for angiogram tomorrow. NPO after midnight (2) Atrial fibrillation and flutter: Code(s): I48.91 - Unspecified atrial fibrillation; I48.92 - Unspecified atrial flutter Status: Acute Assessment and Plan: Resume anticoagulation after angiogram (3) History of heart artery stent: Code(s): Z95.5 - Presence of coronary angioplasty implant and graft Status: Acute (4) Hypertension: Qualifiers: Hypertension type: essential hypertension Qualified Code(s): I10 - Essential (primary) hypertension Code(s): I10 - Essential (primary) hypertension Status: Acute Assessment and Plan: Continue current meds including lisinopril, metoprolol, hydralazine (5) Hyperlipidemia: Qualifiers: Hyperlipidemia type: mixed hyperlipidemia Qualified Code(s): E78.2 - Mixed hyperlipidemia Code(s): E78.5 - Hyperlipidemia, unspecified Status: Acute Assessment and Plan: Continue statin (6) Chest pain: Code(s): R07.9 - Chest pain, unspecified Status: Acute Assessment and Plan: Current chest pain is reproducible and likely related to musculoskeletal in etiology. Significant troponin elevation though indicates recent non-STEMI. Plan is as above Subjective Date/time seen: 09/12/22 10:47 Interval history: 87-year-old with CAD. She had fallen and was found by her son today about to hospital for further evaluation. Troponins were elevated in she is being treated for non ST elevation myocardial infarction. Date of service 09/12/2022: Having some left-sided chest pain was reproducible by pushing on her chest. No syncope, presyncope, shortness of breath. Review of Systems Constitutional: Constitutional: Reports no additional constitutional complaints Eyes: Eyes: Reports no additional eye complaints ENT: Reports system reviewed and no additional complaints, except as documented Cardiovascular: Cardiovascular: Reports as per HPI Respiratory: Respiratory: Reports no additional respiratory complaints Gastrointestinal: Gastrointestinal: Reports no additional gastrointestinal complaints Musculoskeletal: Musculoskeletal: Reports back pain and Reports myalgias Integumentary/Breasts: Skin/Breast: Reports system reviewed and no additional complaints, except as docu Neurologic: Reports system reviewed and no additional complaints, except as documented Endocrine: Endocrine: Reports no additional endocrine complaints Hematologic/Lymphatic: Hematologic/Lymphatic: Reports no additional hematologic/lymphatic complaints Allergic/Immunologic: Allergic/Immunologic: Reports no additional allergic/immunologic complaints Exam Const: General: comfortable and no acute distress Other: Very pleasant elderly frail lady no apparent distress HENMT: Mouth: Yes moist mucous membranes Eyes: Sclera: sclerae normal Neck: Neck: supple and no JVD Other: Carotid pulses are intact bilaterally I do not hear any bruits over the neck Resp: Effort & Inspection: normal respiratory effort Auscultation: clear to auscultation bilaterally Cardio: Rhythm: abnormal rhythm irregularly irregular Other: Very soft systolic murmur does not radiate from the left sternal border GI: Auscultation: normal bowel sounds Skin: General skin exam: normal color Neuro: Other: Alert and oriented x3 Extrem: General: normal to inspection Other: Reproducible chest wall pain to palpate left side Objective Data Vital Signs Vital Signs: Vital Signs - 24 hr 09/11/22 12:00 09/11/22 12:00 09/11/22 14:00 Temperature 36.6 C Pulse
[2022-09-12 11:58] LABS: Glucose Point of Care 72 mg/dl (65-105)
--- NOTE | 2022-09-12 13:46 | PM.IMPN ---
Progress Note: A&P Assessment and Plan (1) Non-ST elevated myocardial infarction: Code(s): I21.4 - Non-ST elevation (NSTEMI) myocardial infarction Status: Acute (2) Fall from ground level: Code(s): W18.30XA - Fall on same level, unspecified, initial encounter Status: Acute (3) Coronary artery disease: Code(s): I25.10 - Atherosclerotic heart disease of [place] coronary artery without angina pectoris Status: Acute (4) Hypertension: Qualifiers: Hypertension type: essential hypertension Qualified Code(s): I10 - Essential (primary) hypertension Code(s): I10 - Essential (primary) hypertension Status: Acute (5) Hyperlipidemia: Qualifiers: Hyperlipidemia type: mixed hyperlipidemia Qualified Code(s): E78.2 - Mixed hyperlipidemia Code(s): E78.5 - Hyperlipidemia, unspecified Status: Acute (6) Chronic anticoagulation: Code(s): Z79.01 - director long term care (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 Labs, imaging, EKG, and all reports were personally reviewed. EKG does not show any acute ST segment depressions or elevations however troponin is elevated and is now a little bit above 4.0. Cardiology has been consulted and for now they recommend holding her Xarelto as she may need to be taken to the laboratory sampler. Troponins will be trended to peak. At the time my evaluation she is without chest pain. Regarding her fall, she reports to me that she lost her balance and does not think there was any loss of consciousness or head trauma. She is a bit confused as to what occurred however. Continue to monitor on telemetry to rule out cardiac dysrhythmia. Her CK is a bit elevated but not significantly so and will be monitored. LFTs are also mildly elevated and have been in the past. Abdominal exam is benign and LFTs will be trended. Initiate sliding scale insulin, Accu-Cheks, and hypoglycemic protocol. Check hemoglobin A1c. Continue levothyroxine and check TSH. The rest of her home medications will be reviewed and resumed as appropriate. 09/11/2022:This is an 87-year-old female with history of coronary artery disease, atrial fibrillation flutter on chronic anticoagulation, congestive heart failure, hypertension, hyperlipidemia, and hypothyroidism presented with chest pain. Intermittent left-sided chest discomfort radiating to the left arm associated with mild shortness of breath for the past couple of days. Sometime overnight she got up to use restroom, lost her balance, and fell to the floor. No head injury. she was unable to get herself up and she lay on the floor until her son found her this morning. Vital stable. CT of the head and neck did not show any acute findings. Labs were significant for WBC count of 13.8, CK 397, total bili I 0.4, AST 59, ALT 39, troponin with a peak of 4.670. EKG showed a junctional rhythm with right bundle-branch block and no acute ST segment depressions or elevations. She was treated with nitroglycerin and morphine with improvement in her pain. Leukocytosis since then resolved. Troponin level 1.94-4.0 5-4.67. BNP 1670 TSH less than 0.015. Free T4 is normal INR 1.8 on rivaroxaban likely related to that. Continues to have mildly elevated LFTs and CK level. Cervical CT was severe cervical spondylosis without acute findings. Chest x-ray with small pleural effusions. On aspirin and atorvastatin. Xarelto on hold. Hold levothyroxine cardiology has been consulted and will be taken for cardiac catheterization. Remains chest pain-free 09/12/2022:This is an 87-year-old female with history of coronary artery disease, atrial fib
[2022-09-12 16:14] LABS: Glucose Point of Care 57 mg/dl (65-105)
[2022-09-12] MEDS: GLUCOSE ORAL GEL 15 GM OF GLUCSE IN 37.5 GM TUBE PO (16:16)
[2022-09-12 16:41] LABS: Glucose Point of Care 69 mg/dl (65-105)
[2022-09-12 17:45] LABS: Glucose Point of Care 96 mg/dl (65-105)
[2022-09-12] MEDS: LOPERAMIDE HCL 2 MG CAPSULE PO ×2 (18:43→19:42)
[2022-09-12 20:18] LABS: Glucose Point of Care 87 mg/dl (65-105)
[2022-09-13] VITALS (16 sets, daily range): BP systolic 121–144; BP diastolic 55–73; PULSE 48–77; RESP 18–20; TEMP 36.2–36.9; O2SAT 95–100
[2022-09-13 04:40] LABS: Basophils Percent Auto 0.6 % (0.2-1.2); Eosinophils Absolute Auto 0.1 K/mm3 (0-0.3); Eosinophils Percent Auto 1.6 % (0-4.4); Hemoglobin 11.5 g/dL (12.0-15.0); Immature Granulocyte Absolute 0.02 K/mm3 (0.00-0.031); Immature Granulocyte Percent A 0.3 % (0-0.5); Lymphocytes Absolute Auto 1.49 K/mm3 (0.9-3.2); Lymphocytes Percent Auto 23.2 % (18.3-44.2); Mean Corpuscular HGB Conc 32.9 g/dl (32-36); Mean Corpuscular Volume 94.3 fl (80-100); Mean Platelet Volume 10.7 fl (7.4-10.4); Monocytes Absolute Auto 0.6 K/mm3 (0.1-0.6); Monocytes Percent Auto 9.2 % (2.6-8.5); Neutrophils Absolute Auto 4.2 K/mm3 (1.3-6.7); Neutrophils Percent Auto 65.1 % (45.5-73.1); Platelet Count Result 157 k/mm3 (150-375); Red Blood Count 3.71 M/mm3 (4.2-5.4); Red Cell Distribution Width 12.5 % (11.5-14.5); White Blood Count 6.4 K/mm3 (4.5-10.0)
[2022-09-13 04:49] LABS: Anion Gap 3 mmol/L (8-16); Blood Urea Nitrogen 21 mg/dL (7-17); Carbon Dioxide 28 mmol/L (22-30); Chloride 107 mmol/L (98-107); Estimated CRCL calculation 35 ml/min; Estimated Glomerular Filt Rate > 60; Glucose 81 mg/dL (65-110); Potassium 4.1 mmol/L (3.4-5.0); Sodium 138 mmol/L (137-145)
[2022-09-13] MEDS: NITROGLYCERIN OINTMENT 1 INCH DOSE TRANSDERM ×4 (05:49→23:56)
[2022-09-13 05:55] LABS: Glucose Point of Care 79 mg/dl (65-105)
[2022-09-13] MEDS: DEXTROSE 50% 25 GM/50 ML SYRINGE IV PUSH (08:02)
[2022-09-13] MEDS: METOPROLOL TARTRATE 25 MG TABLET PO ×2 (08:02→17:06)
[2022-09-13 08:03] LABS: Glucose Point of Care 67 mg/dl (65-105)
[2022-09-13] MEDS: lisinopriL 20 MG TABLET PO (08:03)
[2022-09-13] MEDS: ATORVASTATIN 40 MG TABLET PO (08:03)
[2022-09-13] MEDS: ASPIRIN 81 MG ENTERIC TABLET PO (08:03)
--- NOTE | 2022-09-13 08:05 | PCOTNOTE ---
Received OT orders. Pt to have a cardiac cath procedure today. Will await timing of procedure and see today or tomorrow as able.
--- NOTE | 2022-09-13 08:10 | PCPTNOTE ---
Addendum entered by Freya Montana, PT 09/13/22 13:12: Pt's Cardiac Cath procedure will be performed tomorrow. Per hospitalist, continue to hold until after procedure. Original Note: Pt to have Cardiac catheterization today. Will see pt when medically appropriate.
[2022-09-13 08:47] LABS: Glucose Point of Care 117 mg/dl (65-105)
--- NOTE | 2022-09-13 11:17 | PM.PNCARD ---
Progress Note: A&P Assessment and Plan (1) Non-ST elevated myocardial infarction: Code(s): I21.4 - Non-ST elevation (NSTEMI) myocardial infarction Status: Acute Assessment and Plan: Continue aspirin, statin, metoprolol. Holding anticoagulation (on Xarelto for AFIB). Patient was NPO at midnight for possible cardiac catheterization today, however, she has an allergy to contrast media and has not received premedication for this. Therefore, will start premedication today, and plan for cardiac cath tomorrow once patient has been adequately pre-treated. Will pre-treat with Prednisone 50mg at 13 hours, 7 hours, and 1 hour prior to cardiac cath, along with Benadryl 50mg IV x 1 to be given 1 hour prior to cardiac cath. (2) Atrial fibrillation and flutter: Code(s): I48.91 - Unspecified atrial fibrillation; I48.92 - Unspecified atrial flutter Status: Acute Assessment and Plan: Resume anticoagulation after angiogram (3) History of heart artery stent: Code(s): Z95.5 - Presence of coronary angioplasty implant and graft Status: Acute (4) Hypertension: Qualifiers: Hypertension type: essential hypertension Qualified Code(s): I10 - Essential (primary) hypertension Code(s): I10 - Essential (primary) hypertension Status: Acute Assessment and Plan: Continue current meds including lisinopril, metoprolol, hydralazine (5) Hyperlipidemia: Qualifiers: Hyperlipidemia type: mixed hyperlipidemia Qualified Code(s): E78.2 - Mixed hyperlipidemia Code(s): E78.5 - Hyperlipidemia, unspecified Status: Acute Assessment and Plan: Continue statin (6) Chest pain: Code(s): R07.9 - Chest pain, unspecified Status: Acute Assessment and Plan: Current chest pain is reproducible and likely related to musculoskeletal in etiology. Significant troponin elevation though indicates recent non-STEMI. Plan is as above Subjective Date/time seen: 09/13/22 11:17 Interval history: Reason for visit: NSTEMI HPI: This is a 87-year-old lady I am seeing at the request of the hospitalist group because of evidence of acute coronary syndrome/non ST elevation [place].? The patient is known to me from office follow-up she has a history of coronary artery disease and atrial fibrillation.? She came into the hospital yesterday at home after having an apparent fall in her residence and was found on the floor in her bedroom by her son who called an ambulance and had her brought into the hospital for evaluation.? The patient says she can not remember falling or tripping on anything she simply remembers being on the floor at home and being unable to get up.? She laid on the floor from Sunday night into Sunday because she could get up and her son who finally came in to check on her found her and that situation.? She says that she has been having episodes of chest pain off and on for about 2 weeks or so she describes a dull aching left precordial pain that seems to come and go in an unpredictable fashion she does not describe this as exertional in nature necessarily it is not associated with shortness of breath nausea vomiting or diaphoresis.? She does not have any radiation of this pain to any other location.? She states that this was not the principal reason for having her brought to the hospital.? In any event she was evaluated in the emergency room and admitted to the hospital.? She has a history of coronary artery disease and chronic atrial fibrillation.? She previously resided in [place] and underwent PCI of her LAD in in [place] back in 2006 and again in 2007 because of restenoses.? She has not had any catheterization procedures done by me since she has been my patient in this area.? She developed atrial fibrillation in 2018 and has been on rate control and anticoagulation treatment since then.? She also has a history of hypothyroidism treated with thyroid replacement therapy.? Whe
[2022-09-13 12:01] LABS: Glucose Point of Care 87 mg/dl (65-105)
--- NOTE | 2022-09-13 13:43 | WPDPN ---
Progress Note: A&P Assessment and Plan (1) Non-ST elevated myocardial infarction: Code(s): I21.4 - Non-ST elevation (NSTEMI) myocardial infarction Status: Acute (2) Fall from ground level: Code(s): W18.30XA - Fall on same level, unspecified, initial encounter Status: Acute (3) Coronary artery disease: Code(s): I25.10 - Atherosclerotic heart disease of [place] coronary artery without angina pectoris Status: Acute (4) Hypertension: Qualifiers: Hypertension type: essential hypertension Qualified Code(s): I10 - Essential (primary) hypertension Code(s): I10 - Essential (primary) hypertension Status: Acute (5) Hyperlipidemia: Qualifiers: Hyperlipidemia type: mixed hyperlipidemia Qualified Code(s): E78.2 - Mixed hyperlipidemia Code(s): E78.5 - Hyperlipidemia, unspecified Status: Acute (6) Chronic anticoagulation: Code(s): 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 Labs, imaging, EKG, and all reports were personally reviewed. EKG does not show any acute ST segment depressions or elevations however troponin is elevated and is now a little bit above 4.0. 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 Troponins will be trended to peak. At the time my evaluation she is without chest pain. Regarding her fall, she reports to me that she lost her balance and does not think there was any loss of consciousness or head trauma. She is a bit confused as to what occurred however. Continue to monitor on telemetry to rule out cardiac dysrhythmia. Her CK is a bit elevated but not significantly so and will be monitored. LFTs are also mildly elevated and have been in the past. Abdominal exam is benign and LFTs will be trended. Initiate sliding scale insulin, Accu-Cheks, and hypoglycemic protocol. Check hemoglobin A1c. Continue levothyroxine and check TSH. The rest of her home medications will be reviewed and resumed as appropriate. 09/11/2022:This is an 87-year-old female with history of coronary artery disease, atrial fibrillation flutter on chronic anticoagulation, congestive heart failure, hypertension, hyperlipidemia, and hypothyroidism presented with chest pain. Intermittent left-sided chest discomfort radiating to the left arm associated with mild shortness of breath for the past couple of days. Sometime overnight she got up to use restroom, lost her balance, and fell to the floor. No head injury. she was unable to get herself up and she lay on the floor until her son found her this morning. Vital stable. CT of the head and neck did not show any acute findings. Labs were significant for WBC count of 13.8, CK 397, total bili I 0.4, AST 59, ALT 39, troponin with a peak of 4.670. EKG showed a junctional rhythm with right bundle-branch block and no acute ST segment depressions or elevations. She was treated with nitroglycerin and morphine with improvement in her pain. Leukocytosis since then resolved. Troponin level 1.94-4.0 5-4.67. BNP 1670 TSH less than 0.015. Free T4 is normal INR 1.8 on rivaroxaban likely related to that. Continues to have mildly elevated LFTs and CK level. Cervical CT was severe cervical spondylosis without acute findings. Chest x-ray with small pleural effusions. On aspirin and atorvastatin. Xarelto on hold. Hold levothyroxine cardiology has been consulted and will be taken for cardiac catheterization. Remains chest pain-free 09/12/2022:This is an 87-year-old female with history of coronary artery disease, atrial fib
[2022-09-13] MEDS: THERAPEUTIC MULTIVITAMINS/MINERALS TAB (*BKC) 1 TABLET PO (15:05)
[2022-09-13] MEDS: FUROSEMIDE 20 MG TABLET PO (15:06)
[2022-09-13 16:17] LABS: Glucose Point of Care 95 mg/dl (65-105)
[2022-09-13] MEDS: hydrALAZINE HCL 25 MG TABLET PO (17:07)
[2022-09-13] MEDS: ACETAMINOPHEN 500 MG TABLET PO (18:41)
[2022-09-13] MEDS: predniSONE 40 MG, predniSONE 10 MG 50 MG PO (18:42)
[2022-09-13 20:08] LABS: Glucose Point of Care 111 mg/dl (65-105)
[2022-09-14] VITALS (36 sets, daily range): BP systolic 105–160; BP diastolic 35–72; PULSE 48–76; RESP 16–22; TEMP 35.9–36.7; O2SAT 95–100
[2022-09-14] MEDS: predniSONE 40 MG, predniSONE 10 MG 50 MG PO ×2 (01:25→07:50)
[2022-09-14 04:24] LABS: Basophils Percent Auto 0.3 % (0.2-1.2); Hematocrit 34.7 % (37.0-47.0); Hemoglobin 11.5 g/dL (12.0-15.0); Immature Granulocyte Absolute 0.01 K/mm3 (0.00-0.031); Immature Granulocyte Percent A 0.2 % (0-0.5); Lymphocytes Absolute Auto 0.78 K/mm3 (0.9-3.2); Lymphocytes Percent Auto 13.1 % (18.3-44.2); Mean Corpuscular HGB Conc 33.1 g/dl (32-36); Mean Corpuscular Volume 93.5 fl (80-100); Mean Platelet Volume 10.9 fl (7.4-10.4); Monocytes Absolute Auto 0.1 K/mm3 (0.1-0.6); Monocytes Percent Auto 1.3 % (2.6-8.5); Neutrophils Absolute Auto 5.1 K/mm3 (1.3-6.7); Neutrophils Percent Auto 85.1 % (45.5-73.1); Platelet Count Result 184 k/mm3 (150-375); Red Blood Count 3.71 M/mm3 (4.2-5.4); Red Cell Distribution Width 12.2 % (11.5-14.5)
[2022-09-14 04:42] LABS: Alanine Aminotransferase 41 U/L (6-35); Albumin Level 3.3 g/dL (3.5-5.1); Alkaline Phosphatase 59 U/L (38-126); Anion Gap 7 mmol/L (8-16); Aspartate Amino Transferase 46 U/L (14-36); Bilirubin,Total 0.9 mg/dL (0.2-1.3); Blood Urea Nitrogen 18 mg/dL (7-17); Calcium 8.1 mg/dL (8.4-10.2); Carbon Dioxide 23 mmol/L (22-30); Chloride 106 mmol/L (98-107); Estimated CRCL calculation 40 ml/min; Estimated Glomerular Filt Rate > 60; Glucose 164 mg/dL (65-110); Magnesium 1.9 mg/dL (1.6-2.3); Potassium 4.3 mmol/L (3.4-5.0); Sodium 136 mmol/L (137-145)
[2022-09-14 05:08] LABS: Troponin I 0.568 ng/mL (0.000-0.034)
[2022-09-14] MEDS: NITROGLYCERIN OINTMENT 1 INCH DOSE TRANSDERM (05:25)
[2022-09-14 08:01] LABS: Glucose Point of Care 167 mg/dl (65-105)
[2022-09-14] MEDS: METOPROLOL TARTRATE 25 MG TABLET PO ×2 (08:41→18:38)
[2022-09-14] MEDS: ASPIRIN 81 MG ENTERIC TABLET PO (08:42)
[2022-09-14] MEDS: lisinopriL 20 MG TABLET PO (08:42)
[2022-09-14] MEDS: ATORVASTATIN 40 MG TABLET PO (08:42)
[2022-09-14] MEDS: diphenhydrAMINE HCl INJ 50 MG/ML VIAL IV PUSH (09:57)
--- NOTE | 2022-09-14 10:31 | PCPTNOTE ---
Pt getting Cardiac catheterization this date. Will see pt when medically stable. Will Follow.
--- NOTE | 2022-09-14 10:42 | WPDMODSED ---
Moderate Sedation Note-Pt Data Patient Data Diagnosis: NSTEMI Present Complaint: NSTEMI Procedure to be performed/Plan: Coronary angiography, left heart cath, +/- PCI Allergies Allergy/AdvReac Type Severity Reaction Status Date / Time pentazocine Allergy Unknown Unknown Verified 04/27/22 09:16 red dye Allergy Unknown Unknown Verified 04/27/22 09:16 Contrast Media Allergy Unknown Unknown Uncoded 04/27/22 09:16 Home Medications Medication Instructions Recorded Confirmed Type acetaminophen 500 mg capsule 500 mg PO Q4H PRN Pain 01/28/19 09/10/22 History aspirin 81 mg tablet,delayed 81 mg PO DAILY 01/28/19 09/10/22 History release (Adult Low Dose Aspirin) multivitamin,[id number] 1 tablet PO DAILY 01/28/19 09/10/22 History (Complete Multivitamin tablet) rivaroxaban 20 mg tablet (Xarelto) 20 mg PO DAILY 01/28/19 09/10/22 History levothyroxine 100 mcg tablet 100 mcg PO DAILY #90 tabs 11/21/21 09/10/22 Rx lisinopril 20 mg tablet 20 mg PO DAILY #90 tabs 12/12/21 09/10/22 Rx atorvastatin 40 mg tablet 40 mg PO DAILY #90 tabs 07/17/22 09/10/22 Rx metoprolol tartrate 25 mg tablet 25 mg PO BID #180 tabs 08/21/22 09/10/22 Rx furosemide 20 mg tablet 20 mg PO DAILY 09/10/22 09/10/22 History hydralazine 25 mg tablet 25 mg PO BID 09/10/22 09/10/22 History Current Medications: Active Medications Acetaminophen (Acetaminophen 500 Mg Tablet) 500 mg PO Q4H PRN PRN Reason: PAIN RATED 1-3 Last Admin: 09/13/22 18:41 Dose: 500 mg Aspirin (Aspirin 81 Mg Enteric Tablet) 81 mg PO DAILY [facility] Last Admin: 09/14/22 08:42 Dose: 81 mg Atorvastatin Calcium (Atorvastatin 40 Mg Tablet) 40 mg PO DAILY [facility] Last Admin: 09/14/22 08:42 Dose: 40 mg Dextrose (Dextrose 50% 25 Gm/50 Ml Syringe) 12.5 gm IV PUSH PRN PRN; Protocol PRN Reason: Hypoglycemia Last Admin: 09/13/22 08:02 Dose: 12.5 gm Furosemide (Furosemide 20 Mg Tablet) 20 mg PO DAILY [facility] Last Admin: 09/13/22 15:06 Dose: 20 mg Glucagon (Glucagon For Inj 1 Mg Vial) 1 mg IM PRN PRN; Protocol PRN Reason: Hypoglycemia Glucose (Glucose Oral Gel 15 Gm Of Glucse In 37.5 Gm Tube) 15 gm PO PRN PRN; Protocol PRN Reason: Hypoglycemia Last Admin: 09/12/22 16:16 Dose: 15 gm Hydralazine HCl (Hydralazine Hcl 25 Mg Tablet) 25 mg PO BID [facility] Last Admin: 09/13/22 17:07 Dose: 25 mg Dextrose (Dextrose 5% 1,000 Ml) 1,000 mls @ 100 mls/hr IVPB PRN PRN; Protocol PRN Reason: Hypoglycemia Insulin Aspart (Insulin Aspart (*Bkc) 100 Units/Ml) 2 - 5 units SUB-Q TIDWM [facility]; Protocol Last Admin: 09/14/22 08:42 Dose: Not Given Insulin Aspart (Insulin Aspart (*Bkc) 100 Units/Ml) 1 - 2 units SUB-Q HS [facility]; Protocol Last Admin: 09/13/22 20:13 Dose: Not Given Levothyroxine Sodium (Levothyroxine Sodium 100 Mcg Tablet) 100 mcg PO DAILY@0630 [facility] Last Admin: 09/12/22 06:23 Dose: 100 mcg Lisinopril (Lisinopril 20 Mg Tablet) 20 mg PO DAILY [facility] Last Admin: 09/14/22 08:42 Dose: 20 mg Loperamide HCl (Loperamide Hcl 2 Mg Capsule) 2 mg PO PRN PRN PRN Reason: Diarrhea Last Admin: 09/12/22 19:42 Dose: 2 mg Metoprolol Tartrate (Metoprolol Tartrate 25 Mg Tablet) 25 mg PO BID [facility] Last Admin: 09/14/22 08:41 Dose: 25 mg Multivitamins/Calcium (Therapeutic Multivitamins/Minerals Tab (*Bkc)) 1 tablet PO DAILY [facility] Last Admin: 09/13/22 15:05 Dose: 1 tablet Nitroglycerin (Nitroglycerin Sl 0.4 Mg Tablet) 0.4 mg SUBLINGUAL Q5MIN PRN PRN Reason: Chest Pain Last Admin: 09/10/22 16:40 Dose: 0.4 mg Nitroglycerin (Nitroglycerin Ointment 1 Inch Dose) 1 inch TRANSDERM Q6HR [facility] Last Admin: 09/14/22 05:25 Dose: 1 inch Sodium Chloride (Saline Lock Flush) 20 ml IV PUSH PRN PRN PRN Reason: after blood draws Sodium Chloride (Saline Lock Flush) 10 ml IV PUSH PRN PRN PRN Reason: Flush Sodium Chloride (Saline Lock Flush) 10 ml IV PUSH Q8HR [facility] Sedation/Anesthesia: No previous sedation/anesthesia problems (including family history). PMFSH Past Medical History Medic
--- NOTE | 2022-09-14 10:43 | WPDCARDPROC ---
Cardiac Cath Procedure Note Date of procedure:: 09/14/22 Performing physician:: CATHETERIZATION LABORATORY REPORT Procedure Date: 09/14/2022 Shell Machine Operator: Naeem Garcia M.D., [facility]? Referring Physician: Dr. Moi M.D. ? Anesthesia: Versed and Fentanyl were ordered and given in my presence at 10:58, procedure ended at 11:40. Supervision of nurse monitored moderate sedation with Versed and Fentanyl was provided for 42 minutes. Total of Fentanyl 25mcg were administered by the Inhalation Therapist RN Tiarra Sarabia. Pre-op Diagnosis: Coronary artery disease Post-op Diagnosis: 1. The mid LAD has a calcific 90-99% stenosis just proximal to the mid LAD stents. The mid LAD stents have mild diffuse in-stent restenosis with a focal 80-90% in-stent restenosis in the mid portion. 2. Patent stents in the proximal LCX. 3. Prior stents are visualized in the proximal to mid RCA. There is diffuse mild in-stent restenosis. 3. Elevated left ventricular end-diastolic pressure of 30mmHg Procedure(s): 1. Moderate sedation 2. Ultrasound-guided access of the right femoral vein 3. Ultrasound-guided access of the right common femoral artery 4. Ultrasound-guided access of the left common femoral artery 5. Coronary angiography 6. Left heart cath Access Site: Right common femoral artery Left common femoral artery Right femoral vein accessed as patient without IV access Brief History and Clinical Indications: Patient is an 87-year-old female with coronary artery disease with prior PCI who is referred for cardiac catheterization for NSTEMI. All risks, benefits and alternatives to left heart catheterization with or without percutaneous coronary intervention was discussed at length with the patient. Risk of complications including but not limited to bleeding, infection, arrhythmia, stroke, worsening kidney function, blood loss, groin hematoma, limb loss, emergency coronary artery bypass grafting, and even were discussed with the patient and all questions were answered. The patient understood and wished to proceed. Time out called, patient name, date of , medical record number, allergies, procedure performed, identify Shell Machine Operator, patient and staff member concurred with accurate data, procedure carried on. Findings: LEFT HEART CATHETERIZATION FINDINGS: 1. Left main: The left main coronary artery is widely patent without any significant obstructive disease. 2. Left anterior descending: The proximal and mid LAD is heavily calcific. The proximal LAD with mild diffuse disease. The mid LAD has a calcific 90-99% stenosis just proximal to the mid LAD stents. The mid LAD stents have mild diffuse in-stent restenosis with a focal 80-90% in-stent restenosis in the mid portion. The distal LAD is small caliber and diffusely diseased. Diagonal branches are of very small to small caliber and diffusely diseased. 3. Left circumflex: Stents visualized in the proximal left circumflex. Stents are widely patent. LCX and marginal branches with mild diffuse disease without any significant obstructive angiographic disease. 4. Right coronary artery: The RCA is the dominant vessel. Prior stents are visualized in the proximal to mid RCA. There is diffuse mild in-stent restenosis. No obstructive disease in the RCA. 5. Left ventricle: A. End-diastolic pressure 30mmHg. B. LV gram deferred. C. No significant gradient across aortic valve on catheter pullback. Description of Procedure: Informed consent signed and placed in the chart. Patient transferred to label cutter room. Prepped and draped in usual sterile fashion. 2% lidocaine in right groin area. Micropuncture needle used to access right femoral vein under ultrasound guidance. J wire advanced, micropuncture cannula placed. Micropuncture cannula exchange for 4F sheath. Venous sheath used for IV access. Micropuncture needle used to access right common femoral artery under ultrasound guidance. J wire advanced, microp
--- NOTE | 2022-09-14 12:54 | PM.PNCARD ---
Progress Note: A&P Assessment and Plan (1) Non-ST elevated myocardial infarction: Code(s): I21.4 - Non-ST elevation (NSTEMI) myocardial infarction Status: Acute Assessment and Plan: Cardiac Cath 09/14 shows: 1. The mid LAD has a calcific 90-99% stenosis just proximal to the mid LAD stents. The mid LAD stents have mild diffuse in-stent restenosis with a focal 80-90% in-stent restenosis in the mid portion. 2. Patent stents in the proximal LCX. 3. Prior stents are visualized in the proximal to mid RCA. There is diffuse mild in-stent restenosis. 4. Elevated left ventricular end-diastolic pressure of 30mmHg Given complex lesion in the LAD, it is not appropriate for intervention here at [facility] and would be better served for PCI at a higher care institution. Also, there is concern for medication compliance -- labor relations specialist nurses were giving ASA and Plavix to the patient prior to the cardiac catheterization. When they handed patient the pills, she stated she took the pills, but still had them in her hand. Then labor relations specialist nurses put the pills in her mouth and asked to swallow them. When asked if she had swallowed them, patient said yes, but they found the pills still in her mouth. The nurses then had to ask patient to swallow the pills completely again, which patient did so afterwards. Patient lives by herself, and manages her medications herself, and given this incidence with the pills this morning, I am worried about compliance with DAPT if she were to undergo intervention. Discussed these concerns with the patient's son, who states that he hasn't noticed any concerns with her taking pills everyday, but when she runs out of her pills, she forgets to tell him and she is usually out of her medications for a couple of days before he realizes that she is out of the medication. Therefore, will medically manage for now and have patient follow up with her primary matzo forming machine operator as an outpatient.? Will plan to resume Xarelto tomorrow evening if no bleeding issues. Will start Plavix. Loaded with Plavix 600mg x 1 09/14 prior to cardiac cath. Will continue Plavix 75mg once daily. To avoid triple therapy, will discontinue ASA and continue with Plavix + NOAC. Continue high-intensity statin. Continue beta eddie, unable to titrate dose of beta eddie due to resting heart rate in the 50s. Will start Imdur for antianginal therapy. Anticipate discharge 09/15. Will have patient follow up with Dr. Prater as an outpatient. (2) Atrial fibrillation and flutter: Code(s): I48.91 - Unspecified atrial fibrillation; I48.92 - Unspecified atrial flutter Status: Acute Assessment and Plan: In rate controlled atrial fibrillation Will plan to resume Xarelto tomorrow evening if no bleeding issues. Continue beta eddie. (3) History of heart artery stent: Code(s): Z95.5 - Presence of coronary angioplasty implant and graft Status: Acute (4) Hypertension: Qualifiers: Hypertension type: essential hypertension Qualified Code(s): I10 - Essential (primary) hypertension Code(s): I10 - Essential (primary) hypertension Status: Acute Assessment and Plan: Continue current meds including lisinopril, metoprolol, hydralazine (5) Hyperlipidemia: Qualifiers: Hyperlipidemia type: mixed hyperlipidemia Qualified Code(s): E78.2 - Mixed hyperlipidemia Code(s): E78.5 - Hyperlipidemia, unspecified Status: Acute Assessment and Plan: Continue statin (6) Chest pain: Code(s): R07.9 - Chest pain, unspecified Status: Acute Assessment and Plan: Current chest pain is reproducible and likely related to musculoskeletal in etiology. Significant troponin elevation though indicates recent non-STEMI. Plan is as above Subjective Date/time seen: 09/14/22 12:54 Interval history: Reason for visit: NSTEMI HPI: This is a 87-year-old lady I am seeing at the request of the hosp
--- NOTE | 2022-09-14 13:14 | PCOTNOTE ---
Pt currently on bedrest orders x 4 hrs s/p cardiac cath today. Will see pt for OT evaluation tomorrow.
--- NOTE | 2022-09-14 15:12 | WPDPN ---
Progress Note: A&P Assessment and Plan (1) Non-ST elevated myocardial infarction: Code(s): I21.4 - Non-ST elevation (NSTEMI) myocardial infarction Status: Acute (2) Fall from ground level: Code(s): W18.30XA - Fall on same level, unspecified, initial encounter Status: Acute (3) Coronary artery disease: Code(s): I25.10 - Atherosclerotic heart disease of [place] coronary artery without angina pectoris Status: Acute (4) Hypertension: Qualifiers: Hypertension type: essential hypertension Qualified Code(s): I10 - Essential (primary) hypertension Code(s): I10 - Essential (primary) hypertension Status: Acute (5) Hyperlipidemia: Qualifiers: Hyperlipidemia type: mixed hyperlipidemia Qualified Code(s): E78.2 - Mixed hyperlipidemia Code(s): E78.5 - Hyperlipidemia, unspecified Status: Acute (6) Chronic anticoagulation: Code(s): Z79.01 - termite treater (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 Labs, imaging, EKG, and all reports were personally reviewed. EKG does not show any acute ST segment depressions or elevations however troponin is elevated and is now a little bit above 4.0. Cardiology has been consulted and for now they recommend holding her Xarelto as she may need to be taken to the irrigation laborer. Troponins will be trended to peak. At the time my evaluation she is without chest pain. Regarding her fall, she reports to me that she lost her balance and does not think there was any loss of consciousness or head trauma. She is a bit confused as to what occurred however. Continue to monitor on telemetry to rule out cardiac dysrhythmia. Her CK is a bit elevated but not significantly so and will be monitored. LFTs are also mildly elevated and have been in the past. Abdominal exam is benign and LFTs will be trended. Initiate sliding scale insulin, Accu-Cheks, and hypoglycemic protocol. Check hemoglobin A1c. Continue levothyroxine and check TSH. The rest of her home medications will be reviewed and resumed as appropriate. 09/11/2022:This is an 87-year-old female with history of coronary artery disease, atrial fibrillation flutter on chronic anticoagulation, congestive heart failure, hypertension, hyperlipidemia, and hypothyroidism presented with chest pain. Intermittent left-sided chest discomfort radiating to the left arm associated with mild shortness of breath for the past couple of days. Sometime overnight she got up to use restroom, lost her balance, and fell to the floor. No head injury. she was unable to get herself up and she lay on the floor until her son found her this morning. Vital stable. CT of the head and neck did not show any acute findings. Labs were significant for WBC count of 13.8, CK 397, total bili I 0.4, AST 59, ALT 39, troponin with a peak of 4.670. EKG showed a junctional rhythm with right bundle-branch block and no acute ST segment depressions or elevations. She was treated with nitroglycerin and morphine with improvement in her pain. Leukocytosis since then resolved. Troponin level 1.94-4.0 5-4.67. BNP 1670 TSH less than 0.015. Free T4 is normal INR 1.8 on rivaroxaban likely related to that. Continues to have mildly elevated LFTs and CK level. Cervical CT was severe cervical spondylosis without acute findings. Chest x-ray with small pleural effusions. On aspirin and atorvastatin. Xarelto on hold. Hold levothyroxine cardiology has been consulted and will be taken for cardiac catheterization. Remains chest pain-free 09/12/2022:This is an 87-year-old female with history of coronary artery disease, atrial fib
[2022-09-14 15:21] LABS: Glucose Point of Care 149 mg/dl (65-105)
[2022-09-14 16:49] LABS: Glucose Point of Care 166 mg/dl (65-105)
[2022-09-14 17:11] LABS: Glucose Point of Care 143 mg/dl (65-105)
[2022-09-14 18:10] LABS: Glucose Point of Care 159 mg/dl (65-105)
[2022-09-14] MEDS: SALINE LOCK FLUSH 10 ML IV PUSH ×2 (18:38→22:19)
[2022-09-14] MEDS: hydrALAZINE HCL 25 MG TABLET PO (18:38)
[2022-09-14 19:03] LABS: Glucose Point of Care 166 mg/dl (65-105)
[2022-09-14 20:21] LABS: Glucose Point of Care 177 mg/dl (65-105)
[2022-09-15] VITALS (10 sets, daily range): BP systolic 133–138; BP diastolic 51–55; PULSE 42–76; RESP 16–20; TEMP 35.6–36.3; O2SAT 99–100
--- NOTE | 2022-09-15 | ECHO_ITS ---
Patient Info Name: Bindu Espinosa Age: 87 years : 1935 Gender: Female Ht: 62 in Wt: 130 lbs BSA: 1.62 m2 HR: 66 bpm BP: 135 / 55 mmHg Heart Rhythm: Atrial Fibrillation Technical Quality: Good Exam Date: 09/15/2022 9:22 AM Exam Location: [facility] Patient Status: Inpatient Admit Date: 09/11/2022 Staff Ordering Physician: Naeem Garcia MD (desirae/johnna) Salesperson Flowers: Fara Glass RDCS Attending Provider: Jenna Lawler DO Referring Physician: Jose ZHOU; Exam Type: CA echo doppler color flow Study Info Indications I21.4 - Non-ST elevation (NSTEMI) myocardial infarction Complete two-dimensional, color flow and Doppler transthoracic echocardiogram is performed. Summary 1. Complete two-dimensional, color flow and Doppler transthoracic echocardiogram is performed. 2. Left ventricular chamber dimension is normal. 3. Left ventricular systolic function is normal, estimated at 50-55%. 4. There is moderately increased left ventricular wall thickness. 5. There is hypokinesis of the anterior wall and anteroseptum. 6. Right ventricular systolic function is normal. 7. Left atrial chamber dimension is severely enlarged. 8. The mitral valve annulus is moderately calcified. 9. The mitral valve has thickened leaflets. 10. There is moderate mitral valve regurgitation. 11. There is moderate tricuspid valve regurgitation. 12. There is small pericardial effusion. Left Ventricle There is hypokinesis of the anterior wall and anteroseptum. Left ventricular chamber dimension is normal. Left ventricular systolic function is normal, estimated at 50-55%. There is moderately increased left ventricular wall thickness. Right Ventricle Right ventricular chamber dimension is normal. Right ventricular systolic function is normal. Left Atria Left atrial chamber dimension is severely enlarged. Right Atria Right atrial chamber dimension is normal. Atrial Septum Intact interatrial septum visualized by color flow imaging. Aortic Valve The aortic valve is trileaflet. There is no aortic valve stenosis. There is no aortic valve regurgitation. There is moderate aortic valve calcification. Pulmonic Valve The pulmonic valve is not well visualized. Mitral Valve The mitral valve has thickened leaflets. There is moderate mitral valve regurgitation. The mitral valve annulus is moderately calcified. Tricuspid Valve There is moderate tricuspid valve regurgitation. Pericardium/Pleural There is small pericardial effusion. Inferior Vena Cava Dilated inferior vena cava with <50% collapse upon inspiration consistent with elevated right atrial pressure, 15 mmHg. Aorta The aortic root size at the sinus of Valsalva is normal. Left Ventricular Outflow Tract Name Value Normal LVOT 2D LVOT Diameter 1.6 cm LVOT Doppler LVOT Peak Gradient 6 mmHg LVOT Mean Gradient 3 mmHg LVOT VTI 29 cm LVOT VTI/AV VTI Ratio 1.0 LVOT Stroke Volume 57 ml LVOT CO 3.4 l/min LVOT CI 2.1 l/min/m2 Pul
--- NOTE | 2022-09-15 08:26 | PCOTNOTE ---
Attempted to see pt. for occupational therapy evaluation. Pt. currently with PT for evaluation, unable to be seen at this time. Nursing aware. Following.
[2022-09-15 08:37] LABS: Glucose Point of Care 108 mg/dl (65-105)
[2022-09-15] MEDS: CLOPIDOGREL BISULFATE 75 MG TABLET PO (08:53)
[2022-09-15] MEDS: ISOSORBIDE MONONITRATE 30 MG TAB.ER.24H PO (08:53)
[2022-09-15] MEDS: lisinopriL 20 MG TABLET PO (08:53)
[2022-09-15] MEDS: ATORVASTATIN 40 MG TABLET PO (08:53)
[2022-09-15] MEDS: FUROSEMIDE 20 MG TABLET PO (08:53)
[2022-09-15] MEDS: ASPIRIN 81 MG ENTERIC TABLET PO (08:53)
[2022-09-15] MEDS: METOPROLOL TARTRATE 25 MG TABLET PO (08:53)
[2022-09-15] MEDS: hydrALAZINE HCL 25 MG TABLET PO (08:53)
[2022-09-15] MEDS: THERAPEUTIC MULTIVITAMINS/MINERALS TAB (*BKC) 1 TABLET PO (08:55)
[2022-09-15 08:59] LABS: Hematocrit 36.1 % (37.0-47.0); Hemoglobin 11.9 g/dL (12.0-15.0); Mean Corpuscular Hemoglobin 31.3 pg (26-34); Mean Platelet Volume 10.9 fl (7.4-10.4); Platelet Count Result 247 k/mm3 (150-375); Red Cell Distribution Width 12.4 % (11.5-14.5); White Blood Count 11.6 K/mm3 (4.5-10.0)
[2022-09-15 09:15] LABS: Anion Gap 5 mmol/L (8-16); Blood Urea Nitrogen 21 mg/dL (7-17); Calcium 8.3 mg/dL (8.4-10.2); Carbon Dioxide 29 mmol/L (22-30); Chloride 105 mmol/L (98-107); Estimated CRCL calculation 35 ml/min; Estimated Glomerular Filt Rate > 60; Glucose 104 mg/dL (65-110); Magnesium 2.1 mg/dL (1.6-2.3); Potassium 4.1 mmol/L (3.4-5.0); Sodium 139 mmol/L (137-145)
--- NOTE | 2022-09-15 09:54 | PCOTNOTE ---
Attempted to see pt. for occupational therapy evaluation. Pt. currently receiving echocardiogram in room, unavailable to participate at this time. Nursing aware. Following.
--- NOTE | 2022-09-15 11:22 | PCPTNOTE ---
On 09/15/22, the student, [Arcelia Rowe], provided care and completed [facility] documentation on this patient. I have reviewed the student's documentation and agree with the findings.
[2022-09-15] MEDS: ACETAMINOPHEN 500 MG TABLET PO (11:50)
[2022-09-15 12:02] LABS: Glucose Point of Care 80 mg/dl (65-105)
--- NOTE | 2022-09-15 12:14 | PM.DS ---
DS: Admitting Diagnosis Discharge Date 09/15/2022 Admitting Diagnosis Chest pain DS: Discharge Diagnosis Discharge Diagnosis (1) Non-ST elevated myocardial infarction: Code(s): I21.4 - Non-ST elevation (NSTEMI) myocardial infarction Status: Acute (2) Fall from ground level: Code(s): W18.30XA - Fall on same level, unspecified, initial encounter Status: Acute (3) Coronary artery disease: Code(s): I25.10 - Atherosclerotic heart disease of [place] coronary artery without angina pectoris Status: Acute (4) Hypertension: Qualifiers: Hypertension type: essential hypertension Qualified Code(s): I10 - Essential (primary) hypertension Code(s): I10 - Essential (primary) hypertension Status: Acute (5) Hyperlipidemia: Qualifiers: Hyperlipidemia type: mixed hyperlipidemia Qualified Code(s): E78.2 - Mixed hyperlipidemia Code(s): E78.5 - Hyperlipidemia, unspecified Status: Acute (6) Chronic anticoagulation: Code(s): Z79.01 - terminal makeup 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 Labs, imaging, EKG, and all reports were personally reviewed. EKG does not show any acute ST segment depressions or elevations however troponin is elevated and is now a little bit above 4.0. Cardiology has been consulted and for now they recommend holding her Xarelto as she may need to be taken to the labor custodian. Troponins will be trended to peak. At the time my evaluation she is without chest pain. Regarding her fall, she reports to me that she lost her balance and does not think there was any loss of consciousness or head trauma. She is a bit confused as to what occurred however. Continue to monitor on telemetry to rule out cardiac dysrhythmia. Her CK is a bit elevated but not significantly so and will be monitored. LFTs are also mildly elevated and have been in the past. Abdominal exam is benign and LFTs will be trended. Initiate sliding scale insulin, Accu-Cheks, and hypoglycemic protocol. Check hemoglobin A1c. Continue levothyroxine and check TSH. The rest of her home medications will be reviewed and resumed as appropriate. 09/11/2022:This is an 87-year-old female with history of coronary artery disease, atrial fibrillation flutter on chronic anticoagulation, congestive heart failure, hypertension, hyperlipidemia, and hypothyroidism presented with chest pain. Intermittent left-sided chest discomfort radiating to the left arm associated with mild shortness of breath for the past couple of days. Sometime overnight she got up to use restroom, lost her balance, and fell to the floor. No head injury. she was unable to get herself up and she lay on the floor until her son found her this morning. Vital stable. CT of the head and neck did not show any acute findings. Labs were significant for WBC count of 13.8, CK 397, total bili I 0.4, AST 59, ALT 39, troponin with a peak of 4.670. EKG showed a junctional rhythm with right bundle-branch block and no acute ST segment depressions or elevations. She was treated with nitroglycerin and morphine with improvement in her pain. Leukocytosis since then resolved. Troponin level 1.94-4.0 5-4.67. BNP 1670 TSH less than 0.015. Free T4 is normal INR 1.8 on rivaroxaban likely related to that. Continues to have mildly elevated LFTs and CK level. Cervical CT was severe cervical spondylosis without acute findings. Chest x-ray with small pleural effusions. On aspirin and atorvastatin. Xarelto on hold. Hold levothyroxine cardiology has been consulted and will be taken for cardiac catheterization. Remains chest pain-free
== END 2022-09-15 13:13 | disposition home or self-care (01) | DRG 281 ==
LOC: ANHED 12:00 → ANHIMU 14:56
PROVIDERS: General Practice; Internal Medicine; Physician Assistant; Admitting Provider Student in an Organized Health Care Education/Training Program; Emergency Provider Emergency Medicine; PCP Family Medicine; Visit Provider Family Medicine
PROC: 4A023N7 Measurement of Cardiac Sampling and Pressure, Left Heart, Percutaneous Approach (ICD-10-PCS; CPT 93452; principal; 2022-09-14 08:30)
PROC: (CPT 36140; 2022-09-14 08:30)
DX: I21.4 Non-ST elevation (NSTEMI) myocardial infarction (principal); I13.0 Hypertensive heart and chronic kidney disease with heart failure and stage 1 through stage 4 chronic kidney disease, or unspecified chronic kidney disease; I48.92 Unspecified atrial flutter; T82.855A Stenosis of coronary artery stent, initial encounter; I48.20 Chronic atrial fibrillation, unspecified; W18.30XA Fall on same level, unspecified, initial encounter; I25.10 Atherosclerotic heart disease of native coronary artery without angina pectoris; E03.9 Hypothyroidism, unspecified; I50.9 Heart failure, unspecified; E78.5 Hyperlipidemia, unspecified; M19.90 Unspecified osteoarthritis, unspecified site; R07.89 Other chest pain; M81.0 Age-related osteoporosis without current pathological fracture; E11.9 Type 2 diabetes mellitus without complications; Z79.82 Long term (current) use of aspirin; Z79.01 Long term (current) use of anticoagulants; Z85.828 Personal history of other malignant neoplasm of skin; Z90.49 Acquired absence of other specified parts of digestive tract; Z95.5 Presence of coronary angioplasty implant and graft; Z87.891 Personal history of nicotine dependence
CPT/HCPCS: 36140; 36415; 36569; 70450; 71046; 72125; 80048; 80053; 82550; 82948; 83036; 83605; 83690; 83735; 83880; 84439; 84443; 84480; 84484; 85025; 85027; 85610; 85730; 93005; 93306; 93458; 96376; 97161; 99285; A9270; C1751; C1769; C1887; C1894; G0378; J1200; J1644; J2270; J3010; J7030; J7040; J7512

== ENCOUNTER 2023-07-26 10:51 | Inpatient (IN) | payer MEDICARE, SELFPAY ==
[2023-07-26] VITALS (26 sets, daily range): BP systolic 147–196; BP diastolic 45–114; PULSE 41–126; RESP 14–40; TEMP 36.4–36.8; O2SAT 92–100; BMI 24.7
--- NOTE | ~2023-07-26 | XR_ITS ---
EXAMINATION: XR chest 2V DATE: 07/26/2023 11:55 INDICATION: Burning sensation at the midline of the chest TECHNIQUE: frontal and lateral views of the chest were obtained. COMPARISON: Chest radiograph dated 09/10/2022 FINDINGS: Chronic biapical pleural-parenchymal scarring. No other airspace opacities, pulmonary edema, pleural effusion or pneumothorax. Cardiomegaly with small left pericardial fat pad. Coronary artery stenting. Osseous bridging between a few of the anterior right ribs. Cholecystectomy clips in the upper abdome n. Chronic mild anterior wedging of a few mid and lower thoracic vertebral bodies. IMPRESSION: 1. Cardiomegaly. No other acute cardiopulmonary disease. Reviewed, dictated and finalized at location A.
--- NOTE | 2023-07-26 10:54 | ECG_ITS ---
SEE SCANNED COPY FOR CONFIRMED REPORT MTDD
[2023-07-26] MEDS: ASPIRIN 81 MG CHEWABLE TABLET 324 MG PO (11:02)
[2023-07-26] MEDS: METOPROLOL TARTRATE 25 MG TABLET PO (11:27)
[2023-07-26] MEDS: LACTATED RINGERS 1,000 ML 999 ML (11:27)
[2023-07-26] MEDS: BELLADONNA ALK/PHENOB ELIX 10 ML, MAG HYDROX/ALUMINUM HYD/SIMETH 30 ML, LIDOCAINE HCL 2... PO (11:27)
[2023-07-26 11:40] LABS: Basophils Absolute Auto 0.1 K/mm3 (0.0-0.1); Eosinophils Absolute Auto 0.2 K/mm3 (0-0.3); Eosinophils Percent Auto 2.3 % (0-4.4); Hematocrit 37.2 % (37.0-47.0); Hemoglobin 11.5 g/dL (12.0-15.0); Immature Granulocyte Absolute 0.03 K/mm3 (0.00-0.031); Immature Granulocyte Percent A 0.4 % (0-0.5); Lymphocytes Absolute Auto 2.81 K/mm3 (0.9-3.2); Lymphocytes Percent Auto 33.8 % (18.3-44.2); Mean Corpuscular HGB Conc 30.9 g/dl (32-36); Mean Corpuscular Hemoglobin 30.3 pg (26-34); Mean Corpuscular Volume 97.9 fl (80-100); Mean Platelet Volume 10.9 fl (7.4-10.4); Monocytes Absolute Auto 0.6 K/mm3 (0.1-0.6); Monocytes Percent Auto 7.6 % (2.6-8.5); Neutrophils Absolute Auto 4.6 K/mm3 (1.3-6.7); Neutrophils Percent Auto 54.9 % (45.5-73.1); Platelet Count Result 244 k/mm3 (150-375); Red Cell Distribution Width 13.3 % (11.5-14.5); White Blood Count 8.3 K/mm3 (4.5-10.0)
[2023-07-26 11:53] LABS: INR 1.3
[2023-07-26 11:54] LABS: Partial Thromboplastin Time 27.5 Seconds (22.3-36.8)
[2023-07-26 12:09] LABS: Troponin I 0.024 ng/mL (0.000-0.034)
[2023-07-26 12:16] LABS: Lipase 184 U/L (23-300)
[2023-07-26 12:38] LABS: Alanine Aminotransferase 16 U/L (6-35); Albumin Level 3.7 g/dL (3.5-5.1); Alkaline Phosphatase 46 U/L (38-126); Anion Gap 5 mmol/L (4-12); Aspartate Amino Transferase 27 U/L (14-36); Blood Urea Nitrogen 22 mg/dL (7-17); Calcium 8.9 mg/dL (8.4-10.2); Carbon Dioxide 25 mmol/L (22-30); Chloride 109 mmol/L (98-107); Estimated CRCL calculation 35 ml/min; Estimated Glomerular Filt Rate > 60; Glucose 105 mg/dL (65-110); Potassium 3.8 mmol/L (3.4-5.0); Sodium 139 mmol/L (137-145)
--- NOTE | 2023-07-26 12:54 | ECG_ITS ---
SEE SCANNED COPY FOR CONFIRMED REPORT MTDD
--- NOTE | 2023-07-26 12:56 | ED.CHESTPAIN ---
HPI - Chest Pain General Chief Complaint: Chest Pain Stated Complaint: cp Time Seen by Provider: 07/26/23 10:53 History of Present Illness HPI narrative: This is an 88-year-old female, with history of coronary artery disease, AFib on metoprolol and Xarelto, who presents to the emergency department complaining of chest pain. The patient states she was at rest, when she developed substernal burning chest pain without radiation rated 5/10. She denies associated nausea, vomiting or shortness of breath. She denies any recent change in her medications. She denies fevers, chills and has no other at complaints at this time. Related Data Home Medications Medication Instructions Recorded Confirmed acetaminophen 500 mg capsule 500 mg PO Q4H PRN Pain 01/28/19 10/20/22 aspirin 81 mg tablet,delayed 81 mg PO DAILY 01/28/19 10/20/22 release (Adult Low Dose Aspirin) multivitamin,[id number] 1 tablet PO DAILY 01/28/19 10/20/22 (Complete Multivitamin tablet) Allergies Allergy/AdvReac Type Severity Reaction Status Date / Time pentazocine Allergy Unknown Unknown Verified 07/26/23 11:04 red dye Allergy Unknown Unknown Verified 07/26/23 11:04 Contrast Media Allergy Unknown Unknown Uncoded 07/26/23 11:04 Review of Systems Review of Systems: All systems reviewed & are unremarkable except as noted in HPI and below PMFSH Past Medical History Medical History Atrial fibrillation and flutter Chronic anticoagulation Chronic knee pain Chronic shoulder pain Congestive heart failure Coronary artery disease Diverticulitis Hyperlipidemia Hypertension Hypothyroidism Osteoarthritis Osteoporosis Type 2 diabetes mellitus Surgical History Surgical History History of arthroscopy of right knee History of basal cell carcinoma excision History of cataract extraction History of cholecystectomy History of heart artery stent History of tonsillectomy Family History Family History Mother Diabetes mellitus Leukemia Father Family history of heart disease in male family member before age 55 Diabetes mellitus Heart disease Social History Social History Social History: Surrogate medical decision maker: Code status: Full code. Smoking packs per day: 0.5 Smoking cigarettes per day: 10.0 Years smoked: 10 Smoking pack-years: 5.00 Smoking status: Former smoker Second hand tobacco smoke exposure: No Smoking end date: 03/12/99 Alcohol intake: never Substance use: never Substance use type: does not use Lack of Transportation: No Lack of Food: Never True Current Housing: I Have Housing Concerned About Future Housing: No Difficulty Paying Gas/Electric Bills: No Difficulty Paying for Meds: No Currently Unemployed: No Education: Decline to Answer Difficulty w/ Childcare or Family Care: No Living arrangements: alone Additional living arrangements comments: . Four children, 2 have passed. Occupation/Education: retired Additional occupation/education comments: Retired from [employer]. Spiritual care concerns: No Exam Narrative: GENERAL: Well-developed, well-nourished, and in no acute distress. HEAD: Normocephalic, atraumatic. EYES: PERRLA and EOMI. CHEST: Clear to auscultation. No respiratory distress. No wheezes rales or rhonchi HEART: Irregularly irregular rhythm. No murmur heard. Normal peripheral pulses. ABDOMEN: Soft, nontender, nondistended, normal active bowel sounds. EXTREMITIES: Normal range of motion. No edema. SKIN: Warm, dry, no rash. NEURO: Alert and oriented x3. No focal deficit. Moving all 4 limbs spontaneously PSYCH: Normal mood and affect. Course Course Emergency Course: 12:30 -shortly after receiving oral metoprolol, the patient's heart r
--- NOTE | 2023-07-26 14:00 | ECG_ITS ---
SEE SCANNED COPY FOR CONFIRMED REPORT MTDD
--- NOTE | 2023-07-26 15:00 | ADMGEN ---
This patient, Bindu Espinosa, was admitted to IMU Room 205-02. Patient/family oriented to hospital policies and general routines including ID bracelet, bed and alarms, visiting hours, pain management, procedures, bathroom and other care routines, personal items, smoking policy, room service/diet, and visiting hours. Information on how to activate the Rapid Response Team has been discussed. Patient/Family are encouraged to report perceived risks to care and to ask questions if they do not understand what they are told or what they should do.
--- NOTE | 2023-07-26 15:01 | PM.IMHP ---
H&P: HPI History of Present Illness Date/Time: 07/26/23 21:30 Chief Complaint: Chest Pain Narrative: 88 y/o F presents here with chest pain with PMH of Afib/Aflutter on anticoagulation, CHF, CAD, cardiac stent x2, HLD, HTN, hypothyroidism, and DM2. Patient presents here chest pain, throat burning, and N/V that began this morning. Chest pain started around 0500 am while patient was sleeping. Pain woke patient from her sleep and was accompanied by palpations/ heart racing . Patient describes the pain as midsternal, burning, with radiation into the base of her throat, constant, aggravated by exertion, and no alleviating factors. No associated diaphoresis, fatigue, or syncope. Endorsing mild shortness of breath, pre-syncope feeling while traveling to the ED, and GERD-like symptoms. Chest discomfort and SOB resolved with dose of metoprolol 25 mg PO in the ED (HR 120's -> 40's). Denies any recent changes to her medications. While in ED, patient stood to ambulate and had chest pain she described as burning return with exertion. Chest pain then resolved with rest. Initial VS at presentation: 98.3? F, HR 124, RR 20, 192/108, and 100% on RA. ED workup showed: No leukocytosis, very mild anemia, INR 1.3, no significant electrolyte derangements, creatinine 0.8 and GFR >60, initial troponin 0.024. CXR showed cardiomegaly without acute cardiopulmonary disease. EKG showed AFib RVR, rate at 115, RBBB. Review of Systems Review of Systems: All systems reviewed & are unremarkable except as noted in HPI and below [facility] Past Medical History Medical History Atrial fibrillation and flutter Chronic anticoagulation Chronic knee pain Chronic shoulder pain Congestive heart failure Coronary artery disease Diverticulitis Hyperlipidemia Hypertension Hypothyroidism Osteoarthritis Osteoporosis Type 2 diabetes mellitus Surgical History Surgical History History of arthroscopy of right knee History of basal cell carcinoma excision History of cataract extraction History of cholecystectomy History of heart artery stent History of tonsillectomy Family History Family History Mother Diabetes mellitus Leukemia Father Family history of heart disease in male family member before age 55 Diabetes mellitus Heart disease Social History Social History Social History: Surrogate medical decision maker: Code status: Full code. Smoking packs per day: 0.5 Smoking cigarettes per day: 10.0 Years smoked: 10 Smoking pack-years: 5.00 Smoking status: Never smoker Second hand tobacco smoke exposure: No Smoking end date: 03/12/99 Alcohol intake: never Substance use: never Substance use type: does not use Do You Feel Safe in your Home?: Yes Lack of Transportation: No Lack of Food: Never True Current Housing: I Have Housing Concerned About Future Housing: No Difficulty Paying Gas/Electric Bills: No Difficulty Paying for Meds: No Currently Unemployed: No Education: High School Diploma/GED Difficulty w/ Childcare or Family Care: No Living arrangements: alone Additional living arrangements comments: . Four children, 2 have passed. Occupation/Education: retired Additional occupation/education comments: Retired from [employer]. Spiritual care concerns: No Meds Home Medications and Allergies Home Medications Medication Instructions Recorded Confirmed Type acetaminophen 500 mg capsule 500 mg PO Q4H PRN Pain 01/28/19 07/26/23 History aspirin 81 mg tablet,delayed 81 mg PO DAILY 01/28/19 07/26/23 History release (Adult Low Dose Aspirin) multivitamin,[id number] 1 tablet PO DAILY 01/28/19 07/26/23 History (Complete Multivitamin tablet) metoprolol tartrate 25 mg tablet
[2023-07-26] MEDS: hydrALAZINE HCL 25 MG TABLET PO (20:33)
[2023-07-26] MEDS: ACETAMINOPHEN 500 MG TABLET PO (20:38)
[2023-07-26 22:10] LABS: Hematocrit 28.9 % (37.0-47.0); Hemoglobin 9.5 g/dL (12.0-15.0); Mean Corpuscular HGB Conc 32.9 g/dl (32-36); Mean Corpuscular Volume 94.4 fl (80-100); Mean Platelet Volume 10.3 fl (7.4-10.4); Platelet Count Result 165 k/mm3 (150-375); Red Blood Count 3.06 M/mm3 (4.2-5.4); Red Cell Distribution Width 13.3 % (11.5-14.5); White Blood Count 6.2 K/mm3 (4.5-10.0)
[2023-07-26 23:03] LABS: Partial Thromboplastin Time 33.6 Seconds (22.3-36.8)
[2023-07-26] MEDS: HEPARIN SODIUM 5,000 UNITS/ML VIAL 3500 UNITS IV PUSH (23:17)
[2023-07-26] MEDS: HEPARIN SOD/D5W 100 UNITS/ML 25,000 UNITS/250 ML BAG 7 UNITS IV CONT (23:17)
[2023-07-27] VITALS (15 sets, daily range): BP systolic 128–188; BP diastolic 61–77; PULSE 43–98; RESP 16–20; TEMP 36.3–36.8; O2SAT 83–100
[2023-07-27 05:31] LABS: Basophils Absolute Auto 0.1 K/mm3 (0.0-0.1); Basophils Percent Auto 1.2 % (0.2-1.2); Eosinophils Absolute Auto 0.1 K/mm3 (0-0.3); Eosinophils Percent Auto 2.6 % (0-4.4); Hematocrit 30.2 % (37.0-47.0); Hemoglobin 9.7 g/dL (12.0-15.0); Immature Granulocyte Absolute 0.01 K/mm3 (0.00-0.031); Immature Granulocyte Percent A 0.2 % (0-0.5); Lymphocytes Absolute Auto 1.21 K/mm3 (0.9-3.2); Lymphocytes Percent Auto 24.3 % (18.3-44.2); Mean Corpuscular HGB Conc 32.1 g/dl (32-36); Mean Corpuscular Hemoglobin 30.5 pg (26-34); Mean Platelet Volume 10.2 fl (7.4-10.4); Monocytes Absolute Auto 0.4 K/mm3 (0.1-0.6); Monocytes Percent Auto 8.9 % (2.6-8.5); Neutrophils Absolute Auto 3.1 K/mm3 (1.3-6.7); Neutrophils Percent Auto 62.8 % (45.5-73.1); Platelet Count Result 173 k/mm3 (150-375); Red Blood Count 3.18 M/mm3 (4.2-5.4); Red Cell Distribution Width 13.4 % (11.5-14.5)
[2023-07-27 05:47] LABS: Anion Gap 5 mmol/L (4-12); Blood Urea Nitrogen 20 mg/dL (7-17); Calcium 8.7 mg/dL (8.4-10.2); Carbon Dioxide 24 mmol/L (22-30); Chloride 111 mmol/L (98-107); Estimated CRCL calculation 35 ml/min; Estimated Glomerular Filt Rate > 60; Glucose 99 mg/dL (65-110); Potassium 3.7 mmol/L (3.4-5.0); Sodium 140 mmol/L (137-145)
[2023-07-27 05:54] LABS: Partial Thromboplastin Time 46.4 Seconds (22.3-36.8)
[2023-07-27] MEDS: LEVOTHYROXINE SODIUM 88 MCG TABLET PO (06:45)
[2023-07-27] MEDS: HEPARIN SODIUM 5,000 UNITS/ML VIAL 4000 UNITS IV PUSH (06:45)
[2023-07-27] MEDS: ATORVASTATIN 40 MG TABLET PO (09:18)
[2023-07-27] MEDS: FUROSEMIDE 20 MG TABLET PO (09:18)
[2023-07-27] MEDS: METOPROLOL TARTRATE 25 MG TABLET PO (09:18)
[2023-07-27] MEDS: THERAPEUTIC MULTIVITAMINS/MINERALS TAB (*BKC) 1 TABLET PO (09:18)
[2023-07-27] MEDS: hydrALAZINE HCL 25 MG TABLET PO ×2 (09:18→20:56)
[2023-07-27] MEDS: lisinopriL 20 MG TABLET PO (09:19)
[2023-07-27] MEDS: ASPIRIN 81 MG ENTERIC TABLET PO (09:19)
[2023-07-27] MEDS: ACETAMINOPHEN 500 MG TABLET PO ×3 (09:26→18:38)
--- NOTE | 2023-07-27 11:08 | PM.CNCAR ---
Assessment and Plan Assessment and plan (1) Non-ST elevated myocardial infarction: Code(s): I21.4 - Non-ST elevation (NSTEMI) myocardial infarction Status: Acute Assessment and Plan: I had a lengthy discussion with both patient and son, who was at bedside. Patient was actually hoping to go home today as she feels well now. Discussed the findings of workup thus far, and reviewed her prior cardiac catheterization results with the patient, and next management steps. I discussed options of undergoing complex PCI to the LAD stenosis vs medical management. Patient states that at her age, she does not wish to undergo cardiac procedures at this time, and would prefer medical management only. She may consider PCI if medical management fails, however, she would like to avoid cardiac procedures if possible for the time being. I did discuss with her that risk of having recurrent ND is higher with medical management than with PCI, and she understands this, and would still like to avoid cath for now. Therefore, will continue Heparin drip for now. Continue ASA 81mg once daily. Will not plan to start Plavix at this time as patient already on Xarelto, and would like to avoid triple therapy (especially with anemia with Hgb in the 9s). Continue high-intensity statin. I will increase her Metoprolol to 50mg BID. Will start Imdur 60mg once daily. Ambulate patient and see how she feels. If no recurrence of chest pain, hopefully she could be discharged home tomorrow (patient requested to go home today, however, I discussed with her that it would be safer to stay in hospital for at least today and see how she does; she was agreeable to this). I also did have a discussion regarding her code status. Patient would like to be DNR/DNI. (2) Atrial fibrillation with RVR: Code(s): I48.91 - Unspecified atrial fibrillation Status: Acute Assessment and Plan: Currently rate controlled. Increasing Metoprolol to 50mg BID as noted above. On Heparin drip currently -- will resume Xarelto prior to discharge. (3) Coronary artery disease: Code(s): I25.10 - Atherosclerotic heart disease of [place] coronary artery without angina pectoris Status: Acute Assessment and Plan: As above. (4) Chronic anticoagulation: Code(s): Z79.01 - correction (current) use of anticoagulants Status: Acute Assessment and Plan: On Heparin drip currently -- will resume Xarelto prior to discharge. (5) Hypertension: Qualifiers: Hypertension type: essential hypertension Qualified Code(s): I10 - Essential (primary) hypertension Code(s): I10 - Essential (primary) hypertension Status: Acute Assessment and Plan: Elevated. Continue Lisinopril, Hydralazine. Increasing Metoprolol. (6) Hyperlipidemia: Qualifiers: Hyperlipidemia type: mixed hyperlipidemia Qualified Code(s): E78.2 - Mixed hyperlipidemia Code(s): E78.5 - Hyperlipidemia, unspecified Status: Acute Assessment and Plan: Continue high-intensity statin. Plan Recommendations and plan discussed with Hospitalist. History of Present Illness History of Present Illness Consult date/time: 07/27/23 11:08 Requesting physician: Maddy العلي APRN Consult reason: chest pain Reason For Visit: chest pain Narrative: We are consulted for chest pain. This is an 88 year old female with the following history: 1. Coronary artery disease. PCI to the LAD in 2006 and then again in 2007 because of restenosis. Cardiac catheterization in September 2022 showed the mid LAD has a calcific 90-99% stenosis just proximal to the mid LAD stents. The mid LAD stents have mild diffuse in-stent restenosis with a focal 80-90% in-stent restenosis in the mid portion. Patent stents in the proximal LCX. Prior stents are visualized in the proximal to mid RCA. There is diffuse mild in-stent restenosis. Elevated left ventricular end-diastolic pressure of 30mmHg.
[2023-07-27] MEDS: ISOSORBIDE MONONITRATE 60 MG TAB.ER.24H PO (11:48)
[2023-07-27 14:59] LABS: Partial Thromboplastin Time 131.1 Seconds (22.3-36.8)
--- NOTE | 2023-07-27 16:52 | PM.IMPN ---
Progress Note: A&P Assessment and Plan (1) Chest pain: Qualifiers: Chest pain type: unspecified Qualified Code(s): R07.9 - Chest pain, unspecified Code(s): R07.9 - Chest pain, unspecified Status: Acute Plan Patient confirmed the discussion she had with Cardiology. She wants to go home in the morning. She denies any chest pain at the moment. Check troponin to ensure peak. Check hemoglobin in the morning as she has an heparin GTT at the current time. Restart Xarelto before discharge. Continue to appreciate Cardiology recommendations. DNR. Stable. Heparin GTT. Subjective Date/time seen: 07/27/23 16:52 Interval history: No acute overnight events. The patient rest in bed comfortably. She reports having walked to the bathroom and did not have recurrence of chest pain. Review of Systems Review of Systems: All systems reviewed & are unremarkable except as noted in HPI and below (Subjective) Exam Const: General: comfortable and no acute distress Eyes: Pupils: Equal, round and reactive pupils present Neck: Neck: supple Resp: Effort & Inspection: normal respiratory effort Auscultation: clear to auscultation bilaterally Cardio: Rate: regular rate Rhythm: regular rhythm GI: GI Palp: Yes Soft to palpation and No Tenderness to palpation present (GI) Extrem: General: no edema Objective Data Vital Signs Vital Signs: Vital Signs - 24 hr 07/26/23 18:00 07/26/23 20:32 07/26/23 20:44 Temperature 97.7 F Pulse Rate 89 49 L 50 L Respiratory Rate 16 Blood Pressure 147/59 H Pulse Oximetry 96 Oxygen Delivery 07/26/23 20:00 07/26/23 20:00 07/26/23 22:00 Temperature Pulse Rate 52 L 80 Respiratory Rate Blood Pressure Pulse Oximetry Oxygen Delivery Room Air 07/26/23 23:35 07/27/23 00:00 07/27/23 00:00 Temperature 97.5 F L Pulse Rate 50 L 43 L Respiratory Rate 16 Blood Pressure 148/51 H Pulse Oximetry 95 Oxygen Delivery Room Air 07/27/23 02:00 07/27/23 04:00 07/27/23 04:00 Temperature Pulse Rate 45 L 49 L Respiratory Rate Blood Pressure Pulse Oximetry Oxygen Delivery Room Air 07/27/23 04:56 07/27/23 06:00 07/27/23 08:00 Temperature 97.6 F 97.7 F Pulse Rate 52 L 48 L 88 Respiratory Rate 18 20 Blood Pressure 152/61 H 188/74 H Pulse Oximetry 92 100 Oxygen Delivery 07/27/23 09:18 07/27/23 11:43 07/27/23 12:00 Temperature 97.6 F Pulse Rate 98 78 Respiratory Rate 19 Blood Pressure 152/77 H Pulse Oximetry 98 Oxygen Delivery Room Air 07/27/23 08:00 07/27/23 10:00 07/27/23 12:00 Temperature Pulse Rate 96 75 84 Respiratory Rate Blood Pressure Pulse Oximetry Oxygen Delivery 07/27/23 14:00 07/27/23 16:00 Temperature 98.3 F Pulse Rate 82 80 Respiratory Rate 18 Blood Pressure 128/68 Pulse Oximetry 98 Oxygen Delivery Intake/Output Intake/Output: Intake & Output 07/24/23 07/25/23 07/26/23 07/27/23 23:59 23:59 23:59 23:59 Intake Total 990 917.0 Output Total 400 600 Balance 590 317.0 Meds/Results Medications: Active Medications Generic Name Dose Route Start Last Admin Trade Name Freq PRN Reason Stop Dose Admin Acetaminophen 500 mg 07/26/23 19:39 07/27/23 13:30 Acetaminophen 500 Mg Tablet PO 500 mg Q4H PRN Administration PAIN RATED 1-3 Aspirin 81 mg 07/27/23 09:00 07/27/23 09:19 Aspirin 81 Mg Enteric Tablet PO 81 mg DAILY PEG Administration Atorvastatin Calcium 40 mg 07/27/23 09:00 07/27/23 09:18 Atorvastatin 40 Mg Tablet PO 40 mg DAILY PEG Administration Furosemide 20 mg 07/27/23 09:00 07/27/23 09:18 Furosemide 20 Mg Tablet PO 20 mg DAILY PEG Administration Heparin Sodium (Porcine) 4,000 units 07/26/23 19:41 07/27/23 06:45 Heparin Sodium 5,000 Units/Ml Vial IV PUSH 4,000 units PRN PRN Administration aPTT less than 55 seconds Heparin Sodium (Porcine) 2,000 u
[2023-07-27] MEDS: METOPROLOL TARTRATE 50 MG TAB PO (20:56)
[2023-07-27 21:23] LABS: Partial Thromboplastin Time 97.5 Seconds (22.3-36.8)
[2023-07-28] VITALS (9 sets, daily range): BP systolic 121–140; BP diastolic 45–61; PULSE 42–80; RESP 14–99; TEMP 36–36.9; O2SAT 98–99
[2023-07-28 03:37] LABS: Basophils Absolute Auto 0.1 K/mm3 (0.0-0.1); Basophils Percent Auto 1.2 % (0.2-1.2); Eosinophils Absolute Auto 0.2 K/mm3 (0-0.3); Hemoglobin 10.2 g/dL (12.0-15.0); Immature Granulocyte Absolute 0.02 K/mm3 (0.00-0.031); Immature Granulocyte Percent A 0.3 % (0-0.5); Lymphocytes Absolute Auto 1.28 K/mm3 (0.9-3.2); Lymphocytes Percent Auto 21.5 % (18.3-44.2); Mean Corpuscular HGB Conc 32.9 g/dl (32-36); Mean Corpuscular Hemoglobin 31.1 pg (26-34); Mean Corpuscular Volume 94.5 fl (80-100); Mean Platelet Volume 10.2 fl (7.4-10.4); Monocytes Absolute Auto 0.5 K/mm3 (0.1-0.6); Monocytes Percent Auto 8.9 % (2.6-8.5); Neutrophils Absolute Auto 3.8 K/mm3 (1.3-6.7); Neutrophils Percent Auto 64.1 % (45.5-73.1); Platelet Count Result 190 k/mm3 (150-375); Red Blood Count 3.28 M/mm3 (4.2-5.4); Red Cell Distribution Width 13.2 % (11.5-14.5)
[2023-07-28 03:50] LABS: Partial Thromboplastin Time 104.5 Seconds (22.3-36.8)
--- NOTE | 2023-07-28 03:56 | ECG_ITS ---
SEE SCANNED COPY FOR CONFIRMED REPORT MTDD
--- NOTE | 2023-07-28 05:22 | PC.NURSE ---
RN walked patient to bathroom to void, after patient got back into bed RN was notified that patient's rhythm looked abnormal and HR was dropping. Patient had been in the 80's AFIB most of the night but was now dropping to mid 30's - 40's. EKG completed around 4am and hospitalist notified. Will continue to monitor patient. EKG placed in chart.
[2023-07-28] MEDS: HEPARIN SOD/D5W 100 UNITS/ML 25,000 UNITS/250 ML BAG 8 UNITS IV CONT (06:03)
[2023-07-28] MEDS: LEVOTHYROXINE SODIUM 88 MCG TABLET PO (06:03)
[2023-07-28] MEDS: ASPIRIN 81 MG ENTERIC TABLET PO (09:11)
[2023-07-28] MEDS: ATORVASTATIN 40 MG TABLET PO (09:12)
[2023-07-28] MEDS: hydrALAZINE HCL 25 MG TABLET PO (09:12)
[2023-07-28] MEDS: THERAPEUTIC MULTIVITAMINS/MINERALS TAB (*BKC) 1 TABLET PO (09:12)
[2023-07-28] MEDS: ISOSORBIDE MONONITRATE 60 MG TAB.ER.24H PO (09:12)
[2023-07-28] MEDS: FUROSEMIDE 20 MG TABLET PO (09:12)
[2023-07-28] MEDS: lisinopriL 20 MG TABLET PO (09:12)
--- NOTE | 2023-07-28 12:27 | PM.PNCARD ---
Progress Note: A&P Assessment and Plan (1) Non-ST elevated myocardial infarction: Code(s): I21.4 - Non-ST elevation (NSTEMI) myocardial infarction Status: Acute Plan NSTEMI was known history of coronary artery disease in patient declined option for high-risk PCI Paroxysmal atrial fibrillation alternating with sinus bradycardia hypertension plan Resume Xarelto Continue aspirin Continue lisinopril Decrease metoprolol to 25 mg b.i.d. Continue Lasix 20 mg daily Continue hydralazine 25 mg b.i.d. Continue statin Patient can be discharged from cardiac standpoint follow-up in the Subjective Date/time seen: 07/28/23 12:27 Interval history: no acute events Review of Systems Review of Systems: All systems reviewed & are unremarkable except as noted in HPI and below Exam Const: General: comfortable and no acute distress Other: Able to lie flat Resp: Auscultation: clear to auscultation bilaterally and lung sounds not diminished Other: No chest wall tenderness Cardio: Rate: regular rate Rhythm: regular rhythm Heart sounds: no gallops, no murmurs and no rubs GI: GI Palp: Yes Soft to palpation and No Tenderness to palpation present (GI) Auscultation: normal bowel sounds Objective Data Vital Signs Vital Signs: Vital Signs - 24 hr 07/27/23 14:00 07/27/23 16:00 07/27/23 16:00 Temperature 36.8 C Pulse Rate 82 80 Respiratory Rate 18 Blood Pressure 128/68 Pulse Oximetry 98 Oxygen Delivery Room Air Fraction of Inspired Oxygen 07/27/23 16:00 07/27/23 20:00 07/27/23 20:56 Temperature 36.3 C L Pulse Rate 87 83 95 Respiratory Rate 16 Blood Pressure 129/67 Pulse Oximetry 83 L Oxygen Delivery Fraction of Inspired Oxygen 07/28/23 00:00 07/27/23 20:00 07/27/23 22:00 Temperature 36.3 C L Pulse Rate 79 85 81 Respiratory Rate 14 Blood Pressure 126/59 L Pulse Oximetry 99 Oxygen Delivery Fraction of Inspired Oxygen 07/27/23 20:00 07/28/23 00:00 07/28/23 00:00 Temperature Pulse Rate 80 Respiratory Rate Blood Pressure Pulse Oximetry Oxygen Delivery Room Air Room Air Fraction of Inspired Oxygen 07/28/23 02:00 07/28/23 04:00 07/28/23 04:00 Temperature 36.0 C L Pulse Rate 80 42 L 45 L Respiratory Rate 16 Blood Pressure 139/45 L Pulse Oximetry 98 Oxygen Delivery Fraction of Inspired Oxygen 07/28/23 04:00 07/28/23 06:00 07/28/23 07:47 Temperature 36.8 C Pulse Rate 50 L 55 L Respiratory Rate 16 Blood Pressure 140/61 Pulse Oximetry 99 Oxygen Delivery Room Air Fraction of Inspired Oxygen 07/28/23 08:45 07/28/23 08:00 07/28/23 10:00 Temperature Pulse Rate 65 64 Respiratory Rate Blood Pressure Pulse Oximetry 99 Oxygen Delivery Room Air Fraction of Inspired Oxygen 21 Intake/Output Intake/Output: Intake & Output 07/25/23 07/26/23 07/27/23 07/28/23 23:59 23:59 23:59 23:59 Intake Total 990 1213.7 423.2 Output Total 400 600 Balance 590 613.7 423.2 Meds/Results Medications: Active Medications Generic Name Dose Route Start Last Admin Trade Name Freq PRN Reason Stop Dose Admin Acetaminophen 500 mg 07/26/23 19:39 07/27/23 18:38 Acetaminophen 500 Mg Tablet PO 500 mg Q4H PRN Administration PAIN RATED 1-3 Aspirin 81 mg 07/27/23 09:00 07/28/23 09:11 Aspirin 81 Mg Enteric Tablet PO 81 mg DAILY PEG Administration Atorvastatin Calcium 40 mg 07/27/23 09:00 07/28/23 09:12 Atorvastatin 40 Mg Tablet PO 40 mg DAILY PEG Administration Furosemide 20 mg 07/27/23 09:00 07/28/23 09:12 Furosemide 20 Mg Tablet PO 20 mg DAILY PEG Administration Heparin Sodium (Porcine) 4,000 units 07/26/23 19:41 07/27/23 06:45 Heparin Sodium 5,000 Units/Ml Vial IV PUSH 4,000 units PRN PRN Administration aPTT less than 55 seconds Heparin Sodium (Porcine) 2,000 units 07/26/23 19:41 Heparin
--- NOTE | 2023-07-28 12:47 | PM.DS ---
DS: Admitting Diagnosis Discharge Date July 28, 2023 Admitting Diagnosis Chest pain DS: Discharge Diagnosis Discharge Diagnosis (1) Non-ST elevated myocardial infarction: Code(s): I21.4 - Non-ST elevation (NSTEMI) myocardial infarction Status: Acute DS: Summary Hospital Course Hospital Course: 88-year-old female with multiple medical comorbidities including CAD status post percutaneous intervention. She presented with chest pain. Troponin peaked at 4.40. She follows with Dr. Prater. Cardiology consultation requested and after discussion the patient declined to pursue PCI. She received heparin GTT. Elected not to start Plavix in addition to aspirin due to already being on oral anticoagulant and a lower baseline hemoglobin. She is chest pain-free and stable for discharge on 07/27 back to home. To follow-up with her usual client coordinator Dr. Damon. Imdur was added. Cardiology attempted to increase her metoprolol from 25 mg p.o. b.i.d. to 50 mg p.o. b.i.d. she had episodes of AFib with slow ventricular rate. Therefore she will be discharged on the same dose of metoprolol 25 mg p.o. b.i.d.. She continues high-intensity statin and aspirin. The patient elected to be DNR during this admission. Time Spent with Patient Time attestation: Total time spent providing and/or coordinating discharge services: Exam Const: General: comfortable and no acute distress Eyes: Pupils: Equal, round and reactive pupils present Neck: Neck: supple Resp: Effort & Inspection: normal respiratory effort Auscultation: clear to auscultation bilaterally Cardio: Rate: regular rate Rhythm: regular rhythm GI: GI Palp: Yes Soft to palpation and No Tenderness to palpation present (GI) Extrem: General: no edema DS: Data Data Completed and Pending Labs on day of discharge: Labs from last 24 hours 07/28/23 07/27/23 07/27/23 03:32 21:06 14:17 WBC 6.0 RBC 3.28 L Hgb 10.2 L Hct 31.0 L MCV 94.5 MCH 31.1 MCHC 32.9 RDW 13.2 Plt Count 190 MPV 10.2 Immature Gran % (Auto) 0.3 Neut % (Auto) 64.1 Lymph % (Auto) 21.5 [place] % (Auto) 8.9 H Eos % (Auto) 4.0 Baso % (Auto) 1.2 Lymph # (Auto) 1.28 [place] # (Auto) 0.5 Eos # (Auto) 0.2 Baso # (Auto) 0.1 Abs Immat Gran (auto) 0.02 Absolute Neuts (auto) 3.8 Absolute Nucleated RBC 0.000 Nucleated RBC % 0.0 APTT 104.5 H 97.5 H 131.1 H Troponin I 2.770 H* Discharge Plan Discharge Attending physician on discharge: Jodi Lang Consulting providers: Sy Jacobo Discharging Clinician: Jodi Lang Patient Disposition: Home, Self-Care Activity: july shower Diet: heart healthy Patient Instructions: Heart Attack (GEN) Stand Alone Forms: General Discharge Information Follow-up/Referrals: Jonas Prater MD [Physician] - 4 Weeks Discharge Medications: New isosorbide mononitrate 60 mg Tablet Extended Release 24 Hr 60 mg PO QAM Qty: 30 0RF metoprolol tartrate 25 mg Tablet 25 mg PO Q12HR Qty: 60 0RF Continued levothyroxine 100 mcg tablet 88 mcg PO DAILY Xarelto 20 mg tablet 20 mg PO DAILY Qty: 30 0RF aspirin [Adult Low Dose Aspirin] 81 mg tablet,delayed release (DR/EC) 81 mg PO DAILY Complete Multivitamin Tablet 1 tablet PO DAILY acetaminophen 500 mg capsule 500 mg PO Q4H PRN (Reason: Pain) lisinopril 20 mg tablet 20 mg PO DAILY Qty: 90 3RF hydralazine 25 mg tablet 25 mg PO BID Qty: 180 2RF furosemide 20 mg tablet See Rx Instructions .ROUTE .COMPLEX Qty: 90 1RF Dose Instruction: TAKE 1 TABLET BY MOUTH EVERY DAY IN THE MORNING Rx Instructions: TAKE 1 TABLET BY MOUTH EVERY DAY IN THE MORNING atorvastatin 40 mg tablet 40 mg PO DAILY Qty: 90 3RF Discontinued metoprolol tartrate 25 mg tablet 25 mg PO BID Qty: 180 3RF Date of admission: 07/27/23 13:49 Primary Care Prov
--- NOTE | 2023-07-28 13:46 | PC.NURSE ---
Pt discharging at this time via privately owned vehicle accompanied by son. IV removed. Prescription transmitted to desired pharmacy. Discharge packet and education given, including information on heart attack and new medication isosorbide mononitrate. Pt asked appropriate questions and verbalized understanding.
== END 2023-07-28 13:48 | disposition home or self-care (01) | DRG 282 ==
LOC: ANHED 13:53 → ANHIMU 14:33
PROVIDERS: Internal Medicine; Student in an Organized Health Care Education/Training Program; Admitting Provider General Practice; Emergency Provider Preventive Medicine Aerospace Medicine; PCP Family Medicine; Visit Provider General Practice
DX: I21.4 Non-ST elevation (NSTEMI) myocardial infarction (principal); I11.0 Hypertensive heart disease with heart failure; I50.9 Heart failure, unspecified; I48.0 Paroxysmal atrial fibrillation; I25.10 Atherosclerotic heart disease of native coronary artery without angina pectoris; E11.9 Type 2 diabetes mellitus without complications; E78.5 Hyperlipidemia, unspecified; E03.9 Hypothyroidism, unspecified; K57.30 Diverticulosis of large intestine without perforation or abscess without bleeding; M19.90 Unspecified osteoarthritis, unspecified site; M81.0 Age-related osteoporosis without current pathological fracture; Z79.01 Long term (current) use of anticoagulants; Z79.82 Long term (current) use of aspirin; Z95.5 Presence of coronary angioplasty implant and graft; Z87.891 Personal history of nicotine dependence
CPT/HCPCS: 36415; 71046; 80048; 80053; 83690; 84484; 85025; 85027; 85610; 85730; 93005; 96361; 99285; A9270; G0378; J1644; J7120